=== PATIENT | female | born 1940 | race Caucasian/White ===

== ENCOUNTER 2017-06-10 10:04 | Emergency (ER) | payer MEDICARE, OTHER ==
--- NOTE | 2017-06-10 11:01 | ER Document Report ---
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 Most of these have occurred while she was on an immunosuppressive injection agent for treating her rheumatoid arthritis. That medicine was stopped a year ago and she now is only on methotrexate for her rheumatoid. She has had trouble controlling her urine since yesterday and the urine has a bad odor. She seemed confused according to the family and state is worse today. At this time she is completely alert and oriented and is a very good historian. She does have past history CVA, there are no new motor deficits detected. All of the cultures and treatment were carried out through [facility] and they thought they would come here today. I have advised them they should request a form for release of records and obtain all of the cultures and sensitivities for the past 2 years to help direct initial antibiotic therapy if needed. I have greeted and performed a rapid initial assessment of this patient. A comprehensive ED assessment and evaluation of the patient, analysis of test results and completion of the medical decision making process will be conducted by additional ED providers. TRAVEL OUTSIDE OF THE [place] IN LAST 30 DAYS: No - Related Data Allergies/Adverse Reactions: TIESHA Inhibitors Allergy (Verified 06/10/17 10:06) Home Medications: Current Home Medications Aspirin 81 mg PO DAILY 06/10/17 [History] Calcium Carbonate [Calcium] 600 mg PO DAILY 06/10/17 [History] Folic Acid 0.8 mg PO DAILY 06/10/17 [History] Gabapentin 300 mg PO TID 06/10/17 [History] Iron 65 mg PO DAILY 06/10/17 [History] Letrozole 2.5 mg PO DAILY 06/10/17 [History] Losartan Potassium 100 mg PO DAILY 06/10/17 [History] Metformin HCl 500 mg PO DAILY 06/10/17 [History] Metoprolol Succinate 50 mg PO DAILY 06/10/17 [History] Nortriptyline HCl 10 mg PO DAILY 06/10/17 [History] Primidone [Mysoline 50 Mg Tablet] 50 mg PO DAILY 06/10/17 [History] Sertraline HCl 100 mg PO DAILY 06/10/17 [History] Simvastatin 10 mg PO DAILY 06/10/17 [History] Tramadol HCl 50 mg PO TID 06/10/17 [History] Past Medical History - Social History Chew tobacco use (# tins/day): No Frequency of alcohol use: None Drug Abuse: None - Past Medical History Cardiac Medical History: Reports: Hx Hypertension Denies: Hx Heart Attack Pulmonary Medical History: Denies: Hx Asthma Neurological Medical History: Reports: Hx Cerebrovascular Accident - SHORT TERM MEMORY LOSS. Denies: Hx Seizures Endocrine Medical History: Reports: Hx Diabetes Mellitus Type 2 Renal/ Medical History: Denies: Hx Peritoneal Dialysis GI Medical History: Reports: Hx Hiatal Hernia. Denies: Hx Hepatitis, Hx Ulcer Musculoskeltal Medical History: Reports Hx Arthritis Infectious Medical History: Denies: Hx Hepatitis Past Surgical History: Reports: Hx Cardiac Catheterization, Hx Cholecystectomy. Denies: Hx Mastectomy, Hx Open Heart Surgery, Hx Pacemaker - Immunizations Hx Diphtheria, Pertussis, Tetanus Vaccination: Yes Physical Exam - Vital signs Vitals: Temp Pulse Resp BP Pulse Ox 98.7 F 56 L 14 147/54 H 99 06/10/17 10:16 06/10/17 10:16 06/10/17 10:16 06/10/17 10:16 06/10/17 10:16 Course - Vital Signs Vital signs: Temp Pulse Resp BP Pulse Ox 98.7 F 56 L 14 147/54 H 99 06/10/17 10:16 06/10/17 10:16 06/10/17 10:16 06/10/17 10:16 06/10/17 10:16 - Laboratory Laboratory results interpreted by me: 06/10/17 10:39 POC Glucose 164 H
[2017-06-10 11:44] LABS: ABSOLUTE EOSINOPHILS # (AUTO) 0.2 10^3/uL (0.0-0.6); ABSOLUTE LYMPHOCYTES (AUTO) 1.3 10^3/uL (0.5-4.7); ABSOLUTE MONOCYTES (AUTO) 0.4 10^3/uL (0.1-1.4); ABSOLUTE NEUT (AUTO) 2.6 10^3/uL (1.7-8.2); BASOPHILS % (AUTO) 0.6 % (0-2); EOSINOPHILS % (AUTO) 4.6 % (0-6); HEMATOCRIT 35.3 % (36.0-47.0); HEMOGLOBIN 12.2 g/dL (12.0-15.5); LYMPHOCYTES % (AUTO) 28.9 % (13-45); MEAN CORPUSCULAR HEMOGLOBIN 32.2 pg (27.0-33.4); MEAN CORPUSCULAR HGB CONC 34.5 g/dL (32.0-36.0); MEAN CORPUSCULAR VOLUME 93 fl (80-97); MONOCYTES % (AUTO) 9.1 % (3-13); PLATELET COUNT 129 10^3/uL (150-450); RED BLOOD COUNT 3.79 10^6/uL (3.72-5.28); RED CELL DISTRIBUTION WIDTH 14.8 % (11.5-14.0); SEGMENTED NEUTROPHILS % (AUTO) 56.8 % (42-78); TOTAL CELLS COUNTED % (AUTO) 100 %; WHITE BLOOD COUNT 4.5 10^3/uL (4.0-10.5)
[2017-06-10 11:52] LABS: APPEARANCE,URINE CLEAR; BILIRUBIN,URINE NEGATIVE (NEGATIVE); COLOR,URINE YELLOW; GLUCOSE, URINE NEGATIVE (NEGATIVE); KETONES,URINE NEGATIVE (NEGATIVE); LEUKOCYTE ESTERASE,URINE TRACE (NEGATIVE); NITRITE,URINE NEGATIVE (NEGATIVE); PROTEIN,URINE NEGATIVE (NEGATIVE); URINE SPECIFIC GRAVITY 1.012; UROBILINOGEN,URINE NEGATIVE mg/dL (<2.0)
[2017-06-10 12:02] LABS: ALANINE AMINOTRANSFERASE 18 U/L (9-52); ALBUMIN 3.5 g/dL (3.5-5.0); ALKALINE PHOSPHATASE 121 U/L (38-126); ANION GAP 10 (5-19); ASPARTATE AMINO TRANSFERASE 25 U/L (14-36); BILIRUBIN,DIRECT 0.2 mg/dL (0.0-0.4); BILIRUBIN,TOTAL 0.7 mg/dL (0.2-1.3); BLOOD UREA NITROGEN 18 mg/dL (7-20); CALCIUM 10.2 mg/dL (8.4-10.2); CARBON DIOXIDE 27 mmol/L (22-30); CHLORIDE 103 mmol/L (98-107); GLUCOSE 127 mg/dL (75-110); POTASSIUM 3.9 mmol/L (3.6-5.0); SODIUM 140.2 mmol/L (137-145); TOTAL PROTEIN 6.4 g/dL (6.3-8.2)
--- NOTE | 2017-06-10 12:26 | ER Document Report ---
ED General - General Chief Complaint: Weakness Stated Complaint: WEAKNESS,DIZZINESS Time Seen by Provider: 06/10/17 10:41 Notes: Patient states that she has struggled for a long time with recurrent urinary tract infections. When she gets urinary tract infection she has incontinence. Had several episodes of incontinence today. [place] dizzy. [place] like she was going to pass out. Of note, patient had a cardiac catheterization within the last 12 months which was reportedly normal. Patient has had CVA in the past. No significant residual deficits other than occasional difficulty with word finding and some short-term memory loss. Patient denies any significant weakness of the upper or lower extremities. No slurred speech. Does have some chronic issues with swallowing. Denies any fevers, chills, sweats. Patient thinks that this is a urinary tract infection. TRAVEL OUTSIDE OF THE [place] IN LAST 30 DAYS: No - HPI Onset: Just prior to arrival Onset/Duration: Gradual Quality of pain: No pain Severity: Mild Associated symptoms: Other - Venous Exacerbated by: Denies - Related Data Allergies/Adverse Reactions: TIESHA Inhibitors Allergy (Verified 06/10/17 10:06) Home Medications: Current Home Medications Aspirin 81 mg PO DAILY 06/10/17 [History] Calcium Carbonate [Calcium] 600 mg PO DAILY 06/10/17 [History] Folic Acid 0.8 mg PO DAILY 06/10/17 [History] Gabapentin 300 mg PO TID 06/10/17 [History] Iron 65 mg PO DAILY 06/10/17 [History] Letrozole 2.5 mg PO DAILY 06/10/17 [History] Losartan Potassium 100 mg PO DAILY 06/10/17 [History] Metformin HCl 500 mg PO DAILY 06/10/17 [History] Metoprolol Succinate 50 mg PO DAILY 06/10/17 [History] Nortriptyline HCl 10 mg PO DAILY 06/10/17 [History] Primidone [Mysoline 50 Mg Tablet] 50 mg PO DAILY 06/10/17 [History] Sertraline HCl 100 mg PO DAILY 06/10/17 [History] Simvastatin 10 mg PO DAILY 06/10/17 [History] Tramadol HCl 50 mg PO TID 06/10/17 [History] Past Medical History - General Information source: Patient - Social History Smoking Status: Never Smoker Chew tobacco use (# tins/day): No Frequency of alcohol use: None Drug Abuse: None Lives with: Family Family History: Reviewed & Not Pertinent Patient has suicidal ideation: No Patient has homicidal ideation: No - Past Medical History Cardiac Medical History: Reports: Hx Hypertension Denies: Hx Heart Attack Pulmonary Medical History: Reports: Hx Asthma Neurological Medical History: Reports: Hx Cerebrovascular Accident - SHORT TERM MEMORY LOSS. Denies: Hx Seizures Endocrine Medical History: Reports: Hx Diabetes Mellitus Type 2 Renal/ Medical History: Denies: Hx Peritoneal Dialysis GI Medical History: Reports: Hx Hiatal Hernia. Denies: Hx Hepatitis, Hx Ulcer Musculoskeltal Medical History: Reports Hx Arthritis Infectious Medical History: Denies: Hx Hepatitis Past Surgical History: Reports: Hx Cardiac Catheterization, Hx Cholecystectomy, Hx Orthopedic Surgery - b/l knee, Hx Tonsillectomy. Denies: Hx Mastectomy, Hx Open Heart Surgery, Hx Pacemaker - Immunizations Hx Diphtheria, Pertussis, Tetanus Vaccination: Yes Review of Systems - Review of Systems Constitutional: Weakness EENT: Vertigo Cardiovascular: No symptoms reported Respiratory: No symptoms reported Gastrointestinal: No symptoms reported Genitourinary: Incontinence, Urgency Female Genitourinary: No symptoms reported Musculoskeletal: No symptoms reported Skin: No symptoms reported Hematologic/Lymphatic: No symptoms reported Neurological/Psychological: Other - Dizziness, vertigo Physical Exam - Vital signs Vitals: Temp Pulse Resp BP Pulse Ox 98.7 F 56 L 14 147/54 H 99 06/10/17 10:16 06/10/17 10:16 06/10/17 10:16 06/10/17 10:16 06/10/17 10:16 Interpretation: Normal - General General appearance: Appears well, Alert - HEENT Head: Normocephalic, Atraumatic Eyes: Normal Pupils: PERRL - Respiratory Respiratory status: No respiratory distress Chest status: Nontender Breath sounds: Normal Chest palpation: Normal - Cardiovascular Rhythm: Regular Heart sounds: Normal auscultation Murmur: No - Abdominal Inspection: Normal Distension: No distension Bowel sounds: Normal Tenderness: Nontender Organomegaly: No organomegaly - Back Back: Normal, Nontender - Extremities General upper extremity: Normal inspection, Nontender, Normal color, Normal ROM , Normal temperature General lower extremity: Normal inspection, Nontender, Normal color, Normal ROM , Normal temperature, Normal weight bearing. No: Gita's sign - Neurological Neuro grossly intact: Yes Cognition: Normal Orientation: AAOx4 Dipesh Coma Scale Eye Opening: Spontaneous Dipesh Coma Scale Verbal: Oriented [place] Coma Scale Motor: Obeys Commands [place] Coma Scale Total: 15 Speech: Normal Motor strength normal: LUE, RUE, LLE, RLE Sensory: Normal - Psychological Associated symptoms: Normal affect, Normal mood - Skin Skin Temperature: Warm Skin Moisture: Dry Skin Color: Normal Course - Re-evaluation Re-evalutation: 06/10/17 13:42 Well-appearing female in no acute distress at this time. We will get basic labs , head CT, EKG, cardiac lab and reassess. 06/10/17 15:01 CT unremarkable. Labs fairly unremarkable. Will proceed with MRI just to make sure there is no evidence of stroke. - Vital Signs Vital signs: Temp Pulse Resp BP Pulse Ox 98.7 F 56 L 17 136/57 H 97 06/10/17 10:16 06/10/17 10:16 06/10/17 11:35 06/10/17 11:35 06/10/17 11:35 - Laboratory Result Diagrams: 06/10/17 11:24 06/10/17 11:24 Laboratory results interpreted by me: 06/10/17 06/10/17 06/10/17 10:39 11:24 11:24 Hct 35.3 L RDW 14.8 H Plt Count 129 L Glucose 127 H POC Glucose 164 H Urine Blood Ur Leukocyte Esterase 06/10/17 11:24 Hct RDW Plt Count Glucose POC Glucose Urine Blood SMALL H Ur Leukocyte Esterase TRACE H - EKG Interpretation by Mi EKG shows normal: Sinus rhythm, [place], Intervals, QRS Complexes, ST-T Waves Discharge - Discharge Clinical Impression: Vertigo UTI (urinary tract infection) Qualifiers: Urinary tract infection type: site unspecified Hematuria presence: without hematuria Qualified Code(s): N39.0 - Urinary tract infection, site not specified Disposition: HOME, SELF-CARE Instructions: Trimethoprim-Sulfa ([facility]), Urinary Tract Infection ([facility]) Additional Instructions: Vertigo You have experienced an episode of vertigo -- a whirling dizziness which may be accompanied by nausea and vomiting or staggering. Vertigo is often caused by an irritation of the inner ear, in which case it is called labyrinthitis. It can also be a symptom of a degenerating inner ear, nerve damage, or brain injury. Your physician has evaluated you to determine whether any further testing is necessary. Vertigo is often treated with dramamine or meclizine. These medications are helpful, but stronger medication may be needed if you are vomiting. Rest in bed. You should not drive or operate machinery until completely better. It may take one to three weeks for recovery. If there are new symptoms, such as decreased hearing or vision, severe headache, weakness or faintness, or confusion, call the physician. Prescriptions: Meclizine HCl [Antivert 12.5 mg Tablet] 12.5 mg PO TID PRN 10 Days #30 tablet PRN Reason: Sulfamethoxazole/Trimethoprim [Bactrim Ds Tablet] 1 each PO BID 5 Days #10 tablet Referrals: SOFIYA CURRY MD [Primary Care Provider] - Follow up as needed
[2017-06-10] MEDS ORDERED: MECLIZINE HCL 12.5 MG TABLET PO ONE (12:29)
--- NOTE | 2017-06-10 13:34 | RADIOLOGY REPORT (SQ) ---
EXAM DESCRIPTION: CT HEAD WITHOUT COMPLETED DATE/TIME: 06/10/2017 1:13 pm REASON FOR STUDY: fall, dizziness, hx of cva COMPARISON: None. TECHNIQUE: Axial images acquired through the brain without intravenous contrast. Images reviewed wi th bone, brain and subdural windows. Images stored on PACS. All CT scanners at this facility use dose modulation, iterative reconstruction, and/or weight based d osing when appropriate to reduce radiation dose to as low as reasonably achievable (ALARA). [facility]: Dose Right [facility]: CareDose [facility]: Dose Right [facility]: Teradose 4D [facility]: Smart [employer] RADIATION DOSE: CT Rad equipment meets quality standard of care and radiation dose reduction techniq ues were employed. CTDIvol: 64.6 mGy. DLP: 1163 mGy-cm. mGy. LIMITATIONS: None. FINDINGS: VENTRICLES: Normal size and contour. CEREBRUM: No masses. No hemorrhage. No midline shift. No evidence for acute infarction. Extensive areas of low density in the white matter most likely chronic small vessel ischemic changes. CEREBELLUM: No masses. No hemorrhage. No alteration of density. No evidence for acute infarction. EXTRAAXIAL SPACES: No fluid collections. No masses. ORBITS AND GLOBE: No intra- or extraconal masses. Normal contour of globe without masses. CALVARIUM: No fracture. PARANASAL SINUSES: No fluid or mucosal thickening. SOFT TISSUES: No mass or hematoma. OTHER: No other significant finding. IMPRESSION: Chronic appearing white matter small vessel disease. No CT evidence of acute ischemic change, acute intracranial hemorrhage, mass effect or midline shift. No skull fracture. EVIDENCE OF ACUTE STROKE: NO. COMMENT: Quality ID # [id number]: Final reports with documentation of one or more dose reduction techniques (e.g., Automated exposure control, adjustment of the mA and/or kV according to patient size, use of iterative reconstruction technique) TECHNICAL DOCUMENTATION: JOB ID: [id number] [employer]- All Rights Reserved
--- NOTE | 2017-06-10 17:10 | RADIOLOGY REPORT (SQ) ---
EXAM DESCRIPTION: MRI HEAD WITHOUT COMPLETED DATE/TIME: 06/10/2017 4:56 pm REASON FOR STUDY: dizziness, headache COMPARISON: None. TECHNIQUE: Multiplanar imaging includes non-contrasted T1, T2, FLAIR, and diffusion with ADC map seq uences. Images stored on PACS. LIMITATIONS: None. FINDINGS: ANATOMY: No anomalies. Normal vascular flow voids. Pituitary fossa normal. CSF SPACES: Atrophy induced prominence of ventricles and CSF spaces. CEREBRUM: High signal intensity lesions scattered throughout the white matter on FLAIR imaging with d istribution suggesting micro-vascular ischemic changes. No evidence of hemorrhage, mass, or extraaxi al fluid collection. POSTERIOR FOSSA: No signal alteration. No hemorrhage. No edema, masses or mass effect. Internal cole tory canals, cerebello-pontine angles, mastoids normal. DIFFUSION IMAGING: Negative for acute or sub-acute infarction. ORBITS: No masses. Globes normal. PARANASAL SINUSES: No fluid levels. Mucosa normal. OTHER: No other significant finding. IMPRESSION: ATROPHY AND CHRONIC MICRO-VASCULAR ISCHEMIC CHANGES. OTHERWISE NORMAL MRI OF THE BRAIN W ITHOUT INTRAVENOUS GADOLINIUM CONTRAST. EVIDENCE OF ACUTE STROKE: NO. TECHNICAL DOCUMENTATION: JOB ID: [id number] [employer]- All Rights Reserved
[2017-06-10 17:43] VITALS: BP 146/51
--- NOTE | 2017-06-10 18:33 | EKG REPORT ---
SEVERITY:- ABNORMAL ECG - SINUS RHYTHM CONSIDER OLD TRUE POSTERIOR [place] : Confirmed by: Bayron Niño MD 10-Jun-2017 18:33:31
== END 2017-06-10 17:47 | disposition home or self-care (01) ==
LOC: ER 10:04
DX: N39.0 Urinary tract infection, site not specified (principal); R42 Dizziness and giddiness; R53.1 Weakness; Z79.899 Other long term (current) drug therapy; Z86.73 Personal history of transient ischemic attack (TIA), and cerebral infarction without residual deficits
CPT/HCPCS: 93005; 99285; 51701; 36415; 87086; 82962; 85025; 87088; 80053; 81001; 84484; 87186; 70551; 70450; 93010; A9270; J3490

== ENCOUNTER 2018-11-23 19:29 | Inpatient (IN) | payer MEDICARE, OTHER ==
[2018-11-23] MEDS ORDERED: RINGERS SOLUTION,LACTATED 1,000 ML IV ONE (19:53)
--- NOTE | 2018-11-23 19:55 | ER Document Report ---
ED General - General Stated Complaint: POSSIBLE FEVER Time Seen by Provider: 11/23/18 19:37 Notes: Patient is a 78-year-old female with history of recurrent UTIs that presents to the emergency department for chief complaint of fever, rigors, and generalized weakness. History provided mainly by the patient's family who is at bedside, they state that she has been getting recurrent UTIs over this entire year, was recently on amoxicillin and doxycycline, she has had increased weakness, and some increased confusion which is typical when she gets a UTI, but today she was more weak than usual, and did have a fever of 103.9, with rigors at home, which is concerning, that she may be getting septic which she has had in the past. She at this time complains of some mild abdominal pain, and some flank pain as well, is not sure she has had blood in the urine, denies having any diarrhea, admits to mild nausea but no vomiting. No other complaints at this time. Family reports that her UTIs are becoming more resistant, but they are not sure what her most recent culture showed and what it was sensitive to, they state that it was resistant to doxycycline so they switched her to amoxicillin. Past Medical History: Rheumatoid arthritis, diabetes mellitus, hypertension, recurrent UTIs Past Surgical History: Mastectomy, cholecystectomy, total knee arthroplasties Social History: Lives at home with family, denies tobacco, alcohol or drug use. Family History: Reviewed and noncontributory for presenting illness Allergies: Reviewed, see documented allergy list. REVIEW OF SYSTEMS: Other than noted above, the 12 point review of systems was reviewed with the patient and were negative, all pertinent findings are included in the HPI. PHYSICAL EXAMINATION: Vital signs reviewed, nursing noted reviewed. GENERAL: Elderly obese female, but in no acute distress HEAD: Atraumatic, normocephalic. EYES: Eyes appear normal, extraocular movements intact, sclera anicteric, conjunctiva are normal. ENT: nares patent, oropharynx clear without exudates. Moist mucous membranes. NECK: Normal range of motion, supple without lymphadenopathy LUNGS: Breath sounds clear to auscultation bilaterally and equal. No wheezes rales or rhonchi. HEART: Regular rate and rhythm without murmurs ABDOMEN: Soft, obese, mild suprapubic tenderness to palpation, no significant CVA tenderness bilaterally, normoactive bowel sounds. No rebound, guarding, or rigidity. No masses appreciated. EXTREMITIES: Nontender, good range of motion, trace bilateral lower extremity generalized edema NEUROLOGICAL: No focal neurological deficits. Moves all extremities spontaneously Motor and sensory grossly intact on exam. PSYCH: Normal mood, normal affect. SKIN: Warm, Dry, normal turgor, no rashes or lesions noted on exposed skin TRAVEL OUTSIDE OF THE [place] IN LAST 30 DAYS: No - Related Data Allergies/Adverse Reactions: TIESHA Inhibitors Allergy (Verified 06/10/17 10:06) Past Medical History - Social History Smoking Status: Never Smoker Family History: Reviewed & Not Pertinent - Past Medical History Cardiac Medical History: Reports: Hx Hypertension Denies: Hx Heart Attack Pulmonary Medical History: Reports: Hx Asthma Neurological Medical History: Reports: Hx Cerebrovascular Accident - SHORT TERM MEMORY LOSS. Denies: Hx Seizures Endocrine Medical History: Reports: Hx Diabetes Mellitus Type 2 Renal/ Medical History: Denies: Hx Peritoneal Dialysis GI Medical History: Reports: Hx Hiatal Hernia. Denies: Hx Hepatitis, Hx Ulcer Musculoskeletal Medical History: Reports Hx Arthritis Infectious Medical History: Denies: Hx Hepatitis Past Surgical History: Reports: Hx Cardiac Catheterization, Hx Cholecystectomy, Hx Orthopedic Surgery - b/l knee, Hx Tonsillectomy. Denies: Hx Mastectomy, Hx Open Heart Surgery, Hx Pacemaker - Immunizations Hx Diphtheria, Pertussis, Tetanus Vaccination: Yes Physical Exam - Vital signs Vitals: Resp Pulse Ox 32 H 91 L 11/23/18 19:40 11/23/18 19:40 Course - Re-evaluation Re-evalutation: Patient seen and examined vital signs reviewed. Laboratory data and imaging were ordered as appropriate for the patient's presenting symptoms and complaint, with consideration of any critical or life threatening conditions that may be associated with their obtained history and exam as noted above. Patient was treated with IV fluids, she was given almost a liter by EMS additional liter in the ED, fluids were given judiciously as the patient does have a history of CHF, and obstructive sleep apnea, so she was given a total of 2 L, in addition to be starting on Zosyn, family did report history of resistance, I did call over to [facility], but the only records they have were of a culture from 2017, and I did call to their urologist office, but they were closed and could not get results. I did not feel the patient need to be put on the meropenem or imipenem, as it did not seem that the patient had ESBL organism growing if it was sensitive to as reported by family to amoxicillin. Results were reviewed when available and demonstrated urine was grossly positive for urinary tract infection, and sent for culture, blood cultures pending as well, normal white blood cell count, however she did have shift toward neutrophils, normal renal function, lactic acid was elevated over 3. The patient was re-evaluated and was improved, fever was coming down, blood pressure remained stable Evaluation was most consistent with sepsis, UTI Results were discussed with the patient at this point after careful consideration I feel that that patient should be admitted to the hospital. This was discussed with the patient that it is in the best interest for their care to be admitted for further evaluation and management. Patient agreed with this plan of care. A call was placed to the admitting physician, Dr. Hollingsworth who graciously accepted the patient onto their service. *Note is created using voice recognition software and may contain spelling, syntax or grammatical errors. Laboratory 11/23/18 11/23/18 11/23/18 19:35 19:35 19:35 WBC 4.2 RBC 3.13 L Hgb 9.5 L Hct 27.8 L MCV 89 MCH 30.5 MCHC 34.3 RDW 17.4 H Plt Count 92 L Seg Neutrophils % 88.4 H Lymphocytes % 5.7 L Monocytes % 4.5 Eosinophils % 1.1 Basophils % 0.3 Absolute Neutrophils 3.7 Absolute Lymphocytes 0.2 L Absolute Monocytes 0.2 Absolute Eosinophils 0.0 Absolute Basophils 0.0 Retic Count (auto) Absolute Retic PT 15.5 H INR 1.17 VBG pH VBG pCO2 VBG HCO3 VBG Base Excess Sodium 134.8 L Potassium 4.6 Chloride 107 Carbon Dioxide 19 L Anion Gap 9 BUN 14 Creatinine 0.84 Est GFR ( Amer) > 60 Est GFR (Non-Af Amer) > 60 Glucose 182 H Lactic Acid Calcium 9.0 Iron TIBC % Saturation Ferritin Total Bilirubin 0.7 Direct Bilirubin 0.2 Neonat Total Bilirubin Not Reportable Neonat Direct Bilirubin Not Reportable Neonat Indirect Bili Not Reportable AST 24 ALT 15 Alkaline Phosphatase 110 Troponin I Total Protein 6.0 L Albumin 3.1 L Vitamin B12 Folate Urine Color Urine Appearance Urine pH Ur Specific [place] Urine Protein Urine Glucose (UA) Urine Ketones Urine Blood Urine Nitrite Urine Bilirubin Urine Urobilinogen Ur Leukocyte Esterase Urine WBC (Auto) Urine RBC (Auto) Urine Bacteria (Auto) Urine WBC Clumps Urine Mucus (Auto) Urine Ascorbic Acid 11/23/18 11/23/18 11/23/18 19:35 19:35 19:35 WBC RBC Hgb Hct MCV MCH MCHC RDW Plt Count Seg Neutrophils % Lymphocytes % Monocytes % Eosinophils % Basophils % Absolute Neutrophils Absolute Lymphocytes Absolute Monocytes Absolute Eosinophils Absolute Basophils Retic Count (auto) Absolute Retic PT INR VBG pH 7.38 VBG pCO2 33.9 L VBG HCO3 19.5 L VBG Base Excess -4.9 Sodium Potassium Chloride Carbon Dioxide Anion Gap BUN Creatinine Est GFR ( Amer) Est GFR (Non-Af Amer) Glucose Lactic Acid 3.4 H Calcium Iron TIBC % Saturation Ferritin Total Bilirubin Direct Bilirubin Neonat Total Bilirubin Neonat Direct Bilirubin Neonat Indirect Bili AST ALT Alkaline Phosphatase Troponin I 0.012 Total Protein Albumin Vitamin B12 Folate Urine Color Urine Appearance Urine pH Ur Specific [place] Urine Protein Urine Glucose (UA) Urine Ketones Urine Blood Urine Nitrite Urine Bilirubin Urine Urobilinogen Ur Leukocyte Esterase Urine WBC (Auto) Urine RBC (Auto) Urine Bacteria (Auto) Urine WBC Clumps Urine Mucus (Auto) Urine Ascorbic Acid 11/23/18 11/23/18 11/23/18 19:35 19:35 20:45 WBC RBC Hgb Hct MCV MCH MCHC RDW Plt Count Seg Neutrophils % Lymphocytes % Monocytes % Eosinophils % Basophils % Absolute Neutrophils Absolute Lymphocytes Absolute Monocytes Absolute Eosinophils Absolute Basophils Retic Count (auto) 2.12 Absolute Retic 0.066 PT INR VBG pH VBG pCO2 VBG HCO3 VBG Base Excess Sodium Potassium Chloride Carbon Dioxide Anion Gap BUN Creatinine Est GFR ( Amer) Est GFR (Non-Af Amer) Glucose Lactic Acid Calcium Iron 46.8 TIBC 319 % Saturation 15 Ferritin 22.90 Total Bilirubin Direct Bilirubin Neonat Total Bilirubin Neonat Direct Bilirubin Neonat Indirect Bili AST ALT Alkaline Phosphatase Troponin I Total Protein Albumin Vitamin B12 658.0 Folate > 20.00 Urine Color YELLOW Urine Appearance CLOUDY Urine pH 5.0 Ur Specific [place] 1.012 Urine Protein 30 H Urine Glucose (UA) 50 H Urine Ketones NEGATIVE Urine Blood MODERATE H Urine Nitrite POSITIVE H Urine Bilirubin NEGATIVE Urine Urobilinogen NEGATIVE Ur Leukocyte Esterase LARGE H Urine WBC (Auto) >182 Urine RBC (Auto) 10 Urine Bacteria (Auto) TRACE Urine WBC Clumps MANY Urine Mucus (Auto) RARE Urine Ascorbic Acid NEGATIVE Chest X-Ray 11/23/18 19:38 IMPRESSION: No acute abnormality is identified. Abdomen/Pelvis CT 11/23/18 21:59 IMPRESSION: Cirrhotic appearance of the liver with gastroesophageal varices and splenic enlargement Incompletely distended urinary bladder with surrounding inflammation which may reflect cystitis - Vital Signs Vital signs: Temp Pulse Resp BP Pulse Ox 99.6 F 65 19 121/40 L 96 11/24/18 02:17 11/24/18 02:18 11/24/18 01:24 11/24/18 02:17 11/24/18 02:17 - Laboratory Result Diagrams: 11/23/18 19:35 11/23/18 19:35 Laboratory results interpreted by me: 11/23/18 11/23/18 11/23/18 19:35 19:35 19:35 RBC 3.13 L Hgb 9.5 L Hct 27.8 L RDW 17.4 H Plt Count 92 L Seg Neutrophils % 88.4 H Lymphocytes % 5.7 L Absolute Lymphocytes 0.2 L PT 15.5 H VBG pCO2 VBG HCO3 Sodium 134.8 L Carbon Dioxide 19 L Glucose 182 H Lactic Acid Total Protein 6.0 L Albumin 3.1 L Urine Protein Urine Glucose (UA) Urine Blood Urine Nitrite Ur Leukocyte Esterase 11/23/18 11/23/18 11/23/18 19:35 19:35 20:45 RBC Hgb Hct RDW Plt Count Seg Neutrophils % Lymphocytes % Absolute Lymphocytes PT VBG pCO2 33.9 L VBG HCO3 19.5 L Sodium Carbon Dioxide Glucose Lactic Acid 3.4 H Total Protein Albumin Urine Protein 30 H Urine Glucose (UA) 50 H Urine Blood MODERATE H Urine Nitrite POSITIVE H Ur Leukocyte Esterase LARGE H - EKG Interpretation by Me Additional EKG results interpreted by me: EKG demonstrates sinus rhythm with a ventricular rate of 87 bpm, left axis deviation, QTC 457 ms, T wave inversions noted in lead I and aVL, this is compared to prior EKG from 06/10/2017, where the T wave inversions do appear new. Discharge - Discharge Clinical Impression: UTI (urinary tract infection) Qualifiers: Urinary tract infection type: site unspecified Hematuria presence: with hematuria Qualified Code(s): N39.0 - Urinary tract infection, site not specified Sepsis Qualifiers: Sepsis type: sepsis due to unspecified organism Qualified Code(s): A41.9 - Sepsis, unspecified organism Anemia Qualifiers: Anemia type: unspecified type Qualified Code(s): D64.9 - Anemia, unspecified Condition: Stable Disposition: ADMITTED INPATIENT Admitting Provider: Darrick (Hospitalist) Unit Admitted: Telemetry
[2018-11-23 19:58] LABS: VENOUS BLOOD BASE EXCESS -4.9 mmol/L; VENOUS BLOOD HCO3 19.5 mmol/L (20-32); VENOUS BLOOD PCO2 33.9 mmHg (35-63); VENOUS BLOOD PH 7.38 (7.30-7.42)
[2018-11-23 20:01] LABS: ABSOLUTE LYMPHOCYTES (AUTO) 0.2 10^3/uL (0.5-4.7); ABSOLUTE MONOCYTES (AUTO) 0.2 10^3/uL (0.1-1.4); ABSOLUTE NEUT (AUTO) 3.7 10^3/uL (1.7-8.2); BASOPHILS % (AUTO) 0.3 % (0-2); EOSINOPHILS % (AUTO) 1.1 % (0-6); HEMATOCRIT 27.8 % (36.0-47.0); HEMOGLOBIN 9.5 g/dL (12.0-15.5); LYMPHOCYTES % (AUTO) 5.7 % (13-45); MEAN CORPUSCULAR HEMOGLOBIN 30.5 pg (27.0-33.4); MEAN CORPUSCULAR HGB CONC 34.3 g/dL (32.0-36.0); MEAN CORPUSCULAR VOLUME 89 fl (80-97); MONOCYTES % (AUTO) 4.5 % (3-13); RED BLOOD COUNT 3.13 10^6/uL (3.72-5.28); RED CELL DISTRIBUTION WIDTH 17.4 % (11.5-14.0); SEGMENTED NEUTROPHILS % (AUTO) 88.4 % (42-78); TOTAL CELLS COUNTED % (AUTO) 100 %; WHITE BLOOD COUNT 4.2 10^3/uL (4.0-10.5)
[2018-11-23 20:09] LABS: INTERNATIONAL RATION (INR) 1.17; PROTHROMBIN TIME 15.5 SEC (11.4-15.4)
[2018-11-23 20:17] LABS: ALANINE AMINOTRANSFERASE 15 U/L (9-52); ALBUMIN 3.1 g/dL (3.5-5.0); ALKALINE PHOSPHATASE 110 U/L (38-126); ANION GAP 9 (5-19); ASPARTATE AMINO TRANSFERASE 24 U/L (14-36); BILIRUBIN,DIRECT 0.2 mg/dL (0.0-0.4); BILIRUBIN,TOTAL 0.7 mg/dL (0.2-1.3); BLOOD UREA NITROGEN 14 mg/dL (7-20); CARBON DIOXIDE 19 mmol/L (22-30); CHLORIDE 107 mmol/L (98-107); GLUCOSE 182 mg/dL (75-110); POTASSIUM 4.6 mmol/L (3.6-5.0); SODIUM 134.8 mmol/L (137-145)
[2018-11-23 20:28] LABS: PLATELET COUNT 92 10^3/uL (150-450)
--- NOTE | 2018-11-23 20:29 | RADIOLOGY REPORT (SQ) ---
EXAM DESCRIPTION: XR CHEST 1 VIEW COMPLETED DATE/TME: 11/23/2018 19:38 CLINICAL HISTORY: 78 years Female fever COMPARISON: 03/05/2012 FINDINGS: The cardiomediastinal silhouette appears unremarkable. No consolidating infiltrates or pleural effusions. No pneumothorax. Ascending aorta appears tortuous but stable. IMPRESSION: No acute abnormality is identified.
[2018-11-23 21:24] LABS: APPEARANCE,URINE CLOUDY; BILIRUBIN,URINE NEGATIVE (NEGATIVE); COLOR,URINE YELLOW; GLUCOSE, URINE 50 mg/dL (NEGATIVE); KETONES,URINE NEGATIVE (NEGATIVE); LEUKOCYTE ESTERASE,URINE LARGE (NEGATIVE); NITRITE,URINE POSITIVE (NEGATIVE); PROTEIN,URINE 30 mg/dL (NEGATIVE); URINE SPECIFIC GRAVITY 1.012; UROBILINOGEN,URINE NEGATIVE mg/dL (<2.0)
[2018-11-23] MEDS ORDERED: PIPERACILLIN/TAZOBACTAM 3.375 GM VIAL IV ONE (21:32)
--- NOTE | 2018-11-23 22:41 | RADIOLOGY REPORT (SQ) ---
EXAM DESCRIPTION: CT ABDOMEN PELVIS WITHOUT IV CONTRAST COMPLETED DATE/TME: 11/23/2018 21:59 CLINICAL HISTORY: 78 years Female uti, flank pain COMPARISON: None. TECHNIQUE: Contiguous axial images obtained through the abdomen and pelvis following IV contrast. Reformatted images obtained. This exam was performed according to our department optimization program which includes automated exposure control, adjustment of the mA and/or kv according to patient size and/or use of iterative reconstruction technique. FINDINGS: Nodular liver suggesting cirrhosis. Numerous gastroesophageal varices. Splenic enlargement measuring 14.4 cm. Unremarkable pancreas. No adrenal masses. The kidneys appear unremarkable. No hydronephrosis. The gallbladder is absent. No aneurysmal dilatation of the aorta. Vascular calcification in aorta. No bowel obstruction. The appendix is unremarkable. No significant free fluid noted. 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
[2018-11-23] MEDS ORDERED: IPRATROPIUM/ALBUTEROL 0.5-2.5 MG/3 ML AMPUL NEB PRN (22:51)
[2018-11-23] MEDS ORDERED: MAG HYDROX/AL HYDROX/SIMETH SUSP 30 ML UDCUP PO PRN (22:51)
--- NOTE | 2018-11-23 22:59 | EKG REPORT ---
SEVERITY:- ABNORMAL ECG - SINUS RHYTHM BORDERLINE LEFT AXIS DEVIATION ABNORMAL T, CONSIDER ISCHEMIA, LATERAL LEADS : Confirmed by: Liliana Beltran 23-Nov-2018 22:58:52
[2018-11-23 23:35] LABS: ABSOLUTE RETICS # 0.066 10^6/uL (0.028-0.122); RETICULOCYTE COUNT (AUTO) 2.12 % (0.66-2.85)
[2018-11-24 00:50] LABS: FOLATE > 20.00 ng/mL (>2.76); IRON(TIBC) 46.8 ug/dL (37-170)
[2018-11-24] MEDS: ACETAMINOPHEN 325 MG TABLET PO PRN ×3 (02:10→12:10)
--- NOTE | 2018-11-24 02:29 | PDOC H&P ---
History of Present Illness Admission Date/PCP: 11/23/18 23:14 LUCHO RICO MD Patient complains of: Fever History of Present Illness: NADEGE LAU is a 78 year old female with past medical history of morbid obesity, GERD, obstructive sleep apnea, rheumatoid arthritis on methotrexate and unknown biologic and recurrent urinary tract infection. She presents with fever, myalgias and found to have neutrophil shift, pyuria and a CT suggestive of cystitis with bladder thickening. She started on empiric antibiotics and referred to the hospitalist for admission. Patient verbalizes frustration over recurrent urinary tract infection following 17 different antibiotic courses of the last 12 months. Past Medical History Cardiac Medical History: Reports: Hypertension Denies: Myocardial Infarction Pulmonary Medical History: Reports: Asthma, Sleep Apnea Neurological Medical History: Denies: Seizures Endocrine Medical History: Reports: Diabetes Mellitus Type 2, Obesity GI Medical History: Reports: Hiatal Hernia Denies: Hepatitis Musculoskeltal Medical History: Reports: Arthritis Hematology: Denies: Anemia, Sickle Cell Disease Past Surgical History Past Surgical History: Reports: Cardiac Catheterization, Cholecystectomy, Orthopedic Surgery - b/l knee, Tonsillectomy Denies: Amputation, Mastectomy, Pacemaker Social History Information Source: Patient Lives with: Family Smoking Status: Never Smoker Frequency of Alcohol Use: None Drugs: None - Advance Directive Resuscitation Status: Full Code Family History Family History: Hypertension Parental Family History Reviewed: Yes Children Family History Reviewed: Yes Sibling(s) Family History Reviewed.: Yes Medication/Allergy Home Medications: Aspirin 81 mg PO DAILY 06/10/17 Calcium Carbonate [Calcium] 600 mg PO DAILY 06/10/17 Folic Acid 0.8 mg PO DAILY 06/10/17 Gabapentin 300 mg PO TID 06/10/17 Iron 65 mg PO DAILY 06/10/17 Letrozole 2.5 mg PO DAILY 06/10/17 Losartan Potassium 100 mg PO DAILY 06/10/17 Meclizine HCl [Antivert 12.5 mg Tablet] 12.5 mg PO TID PRN 10 Days #30 tablet 06/10/17 Metformin HCl 500 mg PO DAILY 06/10/17 Metoprolol Succinate 50 mg PO DAILY 06/10/17 Nortriptyline HCl 10 mg PO DAILY 06/10/17 Primidone [Mysoline 50 Mg Tablet] 50 mg PO DAILY 06/10/17 Sertraline HCl 100 mg PO DAILY 06/10/17 Simvastatin 10 mg PO DAILY 06/10/17 Sulfamethoxazole/Trimethoprim [Bactrim Ds Tablet] 1 each PO BID 5 Days #10 tablet 06/10/17 Tramadol HCl 50 mg PO TID 06/10/17 Allergies/Adverse Reactions: TIESHA Inhibitors Allergy (Verified 06/10/17 10:06) Review of Systems Constitutional: ABSENT: chills, fever(s), headache(s), weight gain, weight loss Eyes: ABSENT: visual disturbances Ears: ABSENT: hearing changes Cardiovascular: ABSENT: chest pain, dyspnea on exertion, edema, orthropnea, palpitations Respiratory: ABSENT: cough, hemoptysis Gastrointestinal: ABSENT: abdominal pain, constipation, diarrhea, hematemesis, hematochezia, nausea, vomiting Genitourinary: ABSENT: dysuria, hematuria Musculoskeletal: ABSENT: joint swelling Integumentary: ABSENT: rash, wounds Neurological: ABSENT: abnormal gait, abnormal speech, confusion, dizziness, focal weakness, syncope Psychiatric: ABSENT: anxiety, depression, homidical ideation, suicidal ideation Endocrine: ABSENT: cold intolerance, heat intolerance, polydipsia, polyuria Hematologic/Lymphatic: ABSENT: easy bleeding, easy bruising Physical Exam Vital Signs: Temp Pulse Resp BP Pulse Ox 99.6 F 65 19 121/40 L 96 11/24/18 02:17 11/24/18 02:18 11/24/18 01:24 11/24/18 02:17 11/24/18 02:17 Intake & Output 11/22/18 11/23/18 11/24/18 11:59 11:59 11:59 Intake Total 1000 Balance 1000 Weight 99.5 kg General appearance: PRESENT: cooperative, mild distress, morbidly obese Head exam: PRESENT: atraumatic, normocephalic Eye exam: PRESENT: conjunctiva pink, EOMI, PERRLA. ABSENT: scleral icterus Ear exam: PRESENT: normal external ear exam Mouth exam: PRESENT: dry mucosa, tongue midline Neck exam: ABSENT: carotid bruit, JVD, lymphadenopathy, thyromegaly Respiratory exam: PRESENT: clear to auscultation marcelo. ABSENT: rales, rhonchi, wheezes Cardiovascular exam: PRESENT: RRR. ABSENT: diastolic murmur, rubs, systolic murmur Pulses: PRESENT: normal dorsalis pedis pul Vascular exam: PRESENT: normal capillary refill GI/Abdominal exam: PRESENT: normal bowel sounds, soft. ABSENT: distended, guarding, mass, organolmegaly, rebound, tenderness Rectal exam: PRESENT: deferred Extremities exam: PRESENT: full ROM. ABSENT: calf tenderness, clubbing, pedal edema Neurological exam: PRESENT: alert, awake, oriented to person, oriented to place, oriented to time, oriented to situation, CN II-XII grossly intact. ABSENT: motor sensory deficit Psychiatric exam: PRESENT: appropriate affect, normal mood. ABSENT: homicidal ideation, suicidal ideation Skin exam: PRESENT: dry, intact, warm. ABSENT: cyanosis, rash Results Laboratory Results: 11/23/18 19:35 11/23/18 19:35 11/23/18 11/23/18 11/23/18 19:35 19:35 19:35 WBC 4.2 RBC 3.13 L Hgb 9.5 L Hct 27.8 L MCV 89 MCH 30.5 MCHC 34.3 RDW 17.4 H Plt Count 92 L Seg Neutrophils % 88.4 H Lymphocytes % 5.7 L Monocytes % 4.5 Eosinophils % 1.1 Basophils % 0.3 Absolute Neutrophils 3.7 Absolute Lymphocytes 0.2 L Absolute Monocytes 0.2 Absolute Eosinophils 0.0 Absolute Basophils 0.0 Retic Count (auto) Absolute Retic VBG pH VBG pCO2 VBG HCO3 VBG Base Excess Sodium 134.8 L Potassium 4.6 Chloride 107 Carbon Dioxide 19 L Anion Gap 9 BUN 14 Creatinine 0.84 Est GFR ( Amer) > 60 Est GFR (Non-Af Amer) > 60 Glucose 182 H Lactic Acid 3.4 H Calcium 9.0 Iron TIBC % Saturation Ferritin Total Bilirubin 0.7 AST 24 ALT 15 Alkaline Phosphatase 110 Total Protein 6.0 L Albumin 3.1 L Vitamin B12 Folate Urine Color Urine Appearance Urine pH Ur Specific [place] Urine Protein Urine Glucose (UA) Urine Ketones Urine Blood Urine Nitrite Ur Leukocyte Esterase Urine WBC (Auto) Urine RBC (Auto) 11/23/18 11/23/18 11/23/18 19:35 19:35 19:35 WBC RBC Hgb Hct MCV MCH MCHC RDW Plt Count Seg Neutrophils % Lymphocytes % Monocytes % Eosinophils % Basophils % Absolute Neutrophils Absolute Lymphocytes Absolute Monocytes Absolute Eosinophils Absolute Basophils Retic Count (auto) 2.12 Absolute Retic 0.066 VBG pH 7.38 VBG pCO2 33.9 L VBG HCO3 19.5 L VBG Base Excess -4.9 Sodium Potassium Chloride Carbon Dioxide Anion Gap BUN Creatinine Est GFR ( Amer) Est GFR (Non-Af Amer) Glucose Lactic Acid Calcium Iron 46.8 TIBC 319 % Saturation 15 Ferritin 22.90 Total Bilirubin AST ALT Alkaline Phosphatase Total Protein Albumin Vitamin B12 658.0 Folate > 20.00 Urine Color Urine Appearance Urine pH Ur Specific [place] Urine Protein Urine Glucose (UA) Urine Ketones Urine Blood Urine Nitrite Ur Leukocyte Esterase Urine WBC (Auto) Urine RBC (Auto) 11/23/18 20:45 WBC RBC Hgb Hct MCV MCH MCHC RDW Plt Count Seg Neutrophils % Lymphocytes % Monocytes % Eosinophils % Basophils % Absolute Neutrophils Absolute Lymphocytes Absolute Monocytes Absolute Eosinophils Absolute Basophils Retic Count (auto) Absolute Retic VBG pH VBG pCO2 VBG HCO3 VBG Base Excess Sodium Potassium Chloride Carbon Dioxide Anion Gap BUN Creatinine Est GFR ( Amer) Est GFR (Non-Af Amer) Glucose Lactic Acid Calcium Iron TIBC % Saturation Ferritin Total Bilirubin AST ALT Alkaline Phosphatase Total Protein Albumin Vitamin B12 Folate Urine Color YELLOW Urine Appearance CLOUDY Urine pH 5.0 Ur Specific [place] 1.012 Urine Protein 30 H Urine Glucose (UA) 50 H Urine Ketones NEGATIVE Urine Blood MODERATE H Urine Nitrite POSITIVE H Ur Leukocyte Esterase LARGE H Urine WBC (Auto) >182 Urine RBC (Auto) 10 11/23/18 19:35 Troponin I 0.012 Impressions: Chest X-Ray 11/23/18 19:38 IMPRESSION: No acute abnormality is identified. Abdomen/Pelvis CT 11/23/18 21:59 IMPRESSION: Cirrhotic appearance of the liver with gastroesophageal varices and splenic enlargement Incompletely distended urinary bladder with surrounding inflammation which may reflect cystitis Assessment and Plan - Diagnosis (1) UTI (urinary tract infection) Is this a current diagnosis for this admission?: Yes Plan: Blood and urine culture, follow-up recent microbiology from Dr. Rico and Dr. Self at [facility], empiric Zosyn initiated. Follow-up CBC, blood and urine culture (2) Sepsis Is this a current diagnosis for this admission?: Yes Plan: IV fluid challenge, follow-up lactic acid (3) Immunocompromised state due to drug therapy Is this a current diagnosis for this admission?: Yes Plan: Secondary to rheumatoid arthritis treatment of methotrexate and unknown biologic. Pressors or steroids. - Time Time Spent with patient: 35 or more minutes - Inpatient Certification Medical Necessity: Need Close Monitoring Due to Risk of Patient Decompensation
[2018-11-24] MEDS ORDERED: PIPERACILLIN/TAZOBACTAM 4.5 GM VIAL IV ONE (03:41)
[2018-11-24] MEDS: PIPERACILLIN SODIUM/TAZOBACTAM 4.5 GM in NORMAL SALINE 100 ML IV SCH ×4 (04:10→22:43)
[2018-11-24] MEDS: HEPARIN SOD (PORCINE) 5,000 UNIT/ML 1 ML SYRINGE SUBCUT SCH ×3 (05:11→22:49)
[2018-11-24 06:26] LABS: ANION GAP 12 (5-19); BLOOD UREA NITROGEN 14 mg/dL (7-20); CALCIUM 8.3 mg/dL (8.4-10.2); CARBON DIOXIDE 18 mmol/L (22-30); CHLORIDE 106 mmol/L (98-107); GLUCOSE 96 mg/dL (75-110); POTASSIUM 4.4 mmol/L (3.6-5.0); SODIUM 135.6 mmol/L (137-145)
[2018-11-24 08:54] LABS: ABSOLUTE LYMPHOCYTES (AUTO) 0.3 10^3/uL (0.5-4.7); ABSOLUTE MONOCYTES (AUTO) 0.1 10^3/uL (0.1-1.4); ABSOLUTE NEUT (AUTO) 3.4 10^3/uL (1.7-8.2); BASOPHILS % (AUTO) 0.2 % (0-2); EOSINOPHILS % (AUTO) 1.2 % (0-6); HEMATOCRIT 24.3 % (36.0-47.0); HEMOGLOBIN 8.4 g/dL (12.0-15.5); LYMPHOCYTES % (AUTO) 8.8 % (13-45); MEAN CORPUSCULAR HEMOGLOBIN 30.8 pg (27.0-33.4); MEAN CORPUSCULAR HGB CONC 34.5 g/dL (32.0-36.0); MEAN CORPUSCULAR VOLUME 89 fl (80-97); MONOCYTES % (AUTO) 3.4 % (3-13); RED BLOOD COUNT 2.73 10^6/uL (3.72-5.28); RED CELL DISTRIBUTION WIDTH 17.2 % (11.5-14.0); SEGMENTED NEUTROPHILS % (AUTO) 86.4 % (42-78); TOTAL CELLS COUNTED % (AUTO) 100 %; WHITE BLOOD COUNT 3.9 10^3/uL (4.0-10.5)
[2018-11-24 09:25] LABS: PLATELET COUNT 70 10^3/uL (150-450)
[2018-11-24] MEDS: DOCUSATE SODIUM 100 MG CAPSULE PO SCH ×2 (09:26→17:28)
[2018-11-24] MEDS: NORMAL SALINE 1000 ML 1,000 ML IV PRN ×2 (09:27→12:23)
[2018-11-24] MEDS ORDERED: NORMAL SALINE 1000 ML 1,000 ML IV PRN (14:15)
[2018-11-24 15:34] LABS: ANION GAP 6 (5-19); BLOOD UREA NITROGEN 15 mg/dL (7-20); CALCIUM 7.8 mg/dL (8.4-10.2); CARBON DIOXIDE 20 mmol/L (22-30); CHLORIDE 104 mmol/L (98-107); GLUCOSE 155 mg/dL (75-110); POTASSIUM 4.4 mmol/L (3.6-5.0); SODIUM 130.3 mmol/L (137-145)
[2018-11-24] MEDS: OXYCODONE HCL IR 5 MG TABLET PO PRN (15:37)
[2018-11-24] MEDS: OXYBUTYNIN CHLORIDE 5 MG TABLET PO SCH (17:29)
[2018-11-24] MEDS: CHOLECALCIFEROL (D3) 1,000 UNIT (25 MCG) TABLET PO SCH (17:29)
[2018-11-24] MEDS: SERTRALINE HCL 50 MG TABLET PO SCH (17:30)
[2018-11-24] MEDS: CYANOCOBALAMIN (VITAMIN B-12) 1,000 MCG TABLET PO SCH (17:32)
[2018-11-24] MEDS: GABAPENTIN 300 MG CAPSULE PO SCH (22:43)
[2018-11-24] MEDS: NORTRIPTYLINE HCL 10 MG CAPSULE PO SCH (22:45)
[2018-11-25] MEDS: PIPERACILLIN SODIUM/TAZOBACTAM 4.5 GM in NORMAL SALINE 100 ML IV SCH ×4 (05:29→21:21)
[2018-11-25] MEDS: HEPARIN SOD (PORCINE) 5,000 UNIT/ML 1 ML SYRINGE SUBCUT SCH ×3 (05:39→21:21)
[2018-11-25 06:33] LABS: HEMATOCRIT 24.4 % (36.0-47.0); HEMOGLOBIN 8.4 g/dL (12.0-15.5); MEAN CORPUSCULAR HEMOGLOBIN 30.9 pg (27.0-33.4); MEAN CORPUSCULAR HGB CONC 34.6 g/dL (32.0-36.0); MEAN CORPUSCULAR VOLUME 89 fl (80-97); RED BLOOD COUNT 2.73 10^6/uL (3.72-5.28); WHITE BLOOD COUNT 4.3 10^3/uL (4.0-10.5)
[2018-11-25 06:44] LABS: BLOOD UREA NITROGEN 15 mg/dL (7-20); CALCIUM 8.4 mg/dL (8.4-10.2); GLUCOSE 126 mg/dL (75-110); POTASSIUM 4.6 mmol/L (3.6-5.0)
--- NOTE | 2018-11-25 06:55 | PDOC PROGRESS REPORT ---
Subjective Progress Note for:: 11/24/18 Subjective:: Complaining of significant pain across the costal margins. It hurts to sit up. She has difficulty breathing because of the pain. Reason For Visit: UTI SEPSIS IMMUNOCOMP Physical Exam Vital Signs: Temp Pulse Resp BP Pulse Ox 99.4 F 71 14 117/68 90 L 11/24/18 03:39 11/24/18 08:22 11/24/18 08:22 11/24/18 03:39 11/24/18 08:22 Intake & Output 11/23/18 11/24/18 11/25/18 06:59 06:59 06:59 Intake Total 1100 833 Balance 1100 833 Weight 99.5 kg General appearance: PRESENT: cooperative, mild distress, obese, well-developed Head exam: PRESENT: atraumatic, normocephalic Eye exam: PRESENT: conjunctiva pale. ABSENT: scleral icterus Ear exam: PRESENT: normal external ear exam Mouth exam: PRESENT: dry mucosa, tongue midline Respiratory exam: PRESENT: chest wall tenderness - Tenderness along the costal margin and tenderness at the sternum, clear to auscultation marcelo, symmetrical, un labored. ABSENT: prolonged expiratory phas, tachypnea, wheezes Cardiovascular exam: PRESENT: RRR, +S1, +S2. ABSENT: diastolic murmur, systolic murmur GI/Abdominal exam: PRESENT: normal bowel sounds, soft, tenderness - Slight tenderness in the suprapubic and epigastric areas, other - Pendulous abdomen. ABSENT: distended Rectal exam: PRESENT: deferred Extremities exam: PRESENT: pedal edema Neurological exam: PRESENT: alert, awake, oriented to person, oriented to place, oriented to time, oriented to situation, CN II-XII grossly intact Psychiatric exam: PRESENT: appropriate affect - Affect reflects her discomfort. ABSENT: agitated, anxious Focused psych exam: ABSENT: delusional, restlessness Skin exam: PRESENT: dry, warm. ABSENT: rash Results Laboratory Results: 11/24/18 07:39 11/24/18 05:21 11/23/18 11/23/18 11/23/18 19:35 19:35 19:35 WBC 4.2 RBC 3.13 L Hgb 9.5 L Hct 27.8 L MCV 89 MCH 30.5 MCHC 34.3 RDW 17.4 H Plt Count 92 L Seg Neutrophils % 88.4 H Lymphocytes % 5.7 L Monocytes % 4.5 Eosinophils % 1.1 Basophils % 0.3 Absolute Neutrophils 3.7 Absolute Lymphocytes 0.2 L Absolute Monocytes 0.2 Absolute Eosinophils 0.0 Absolute Basophils 0.0 Retic Count (auto) Absolute Retic VBG pH VBG pCO2 VBG HCO3 VBG Base Excess Sodium 134.8 L Potassium 4.6 Chloride 107 Carbon Dioxide 19 L Anion Gap 9 BUN 14 Creatinine 0.84 Est GFR ( Amer) > 60 Est GFR (Non-Af Amer) > 60 Glucose 182 H Lactic Acid 3.4 H Calcium 9.0 Iron TIBC % Saturation Ferritin Total Bilirubin 0.7 AST 24 ALT 15 Alkaline Phosphatase 110 Total Protein 6.0 L Albumin 3.1 L Vitamin B12 Folate Urine Color Urine Appearance Urine pH Ur Specific F[place] Urine Protein Urine Glucose (UA) Urine Ketones Urine Blood Urine Nitrite Ur Leukocyte Esterase Urine WBC (Auto) Urine RBC (Auto) 11/23/18 11/23/18 11/23/18 19:35 19:35 19:35 WBC RBC Hgb Hct MCV MCH MCHC RDW Plt Count Seg Neutrophils % Lymphocytes % Monocytes % Eosinophils % Basophils % Absolute Neutrophils Absolute Lymphocytes Absolute Monocytes Absolute Eosinophils Absolute Basophils Retic Count (auto) 2.12 Absolute Retic 0.066 VBG pH 7.38 VBG pCO2 33.9 L VBG HCO3 19.5 L VBG Base Excess -4.9 Sodium Potassium Chloride Carbon Dioxide Anion Gap BUN Creatinine Est GFR ( Amer) Est GFR (Non-Af Amer) Glucose Lactic Acid Calcium Iron 46.8 TIBC 319 % Saturation 15 Ferritin 22.90 Total Bilirubin AST ALT Alkaline Phosphatase Total Protein Albumin Vitamin B12 658.0 Folate > 20.00 Urine Color Urine Appearance Urine pH Ur Specific [place] Urine Protein Urine Glucose (UA) Urine Ketones Urine Blood Urine Nitrite Ur Leukocyte Esterase Urine WBC (Auto) Urine RBC (Auto) 11/23/18 11/24/18 11/24/18 20:45 05:21 05:21 WBC Cancelled RBC Cancelled Hgb Cancelled Hct Cancelled MCV Cancelled MCH Cancelled MCHC Cancelled RDW Cancelled Plt Count Cancelled Seg Neutrophils % Cancelled Lymphocytes % Cancelled Monocytes % Cancelled Eosinophils % Cancelled Basophils % Cancelled Absolute Neutrophils Cancelled Absolute Lymphocytes Cancelled Absolute Monocytes Cancelled Absolute Eosinophils Cancelled Absolute Basophils Cancelled Retic Count (auto) Absolute Retic VBG pH VBG pCO2 VBG HCO3 VBG Base Excess Sodium 135.6 L Potassium 4.4 Chloride 106 Carbon Dioxide 18 L Anion Gap 12 BUN 14 Creatinine 0.87 Est GFR ( Amer) > 60 Est GFR (Non-Af Amer) > 60 Glucose 96 Lactic Acid Calcium 8.3 L Iron TIBC % Saturation Ferritin Total Bilirubin AST ALT Alkaline Phosphatase Total Protein Albumin Vitamin B12 Folate Urine Color YELLOW Urine Appearance CLOUDY Urine pH 5.0 Ur Specific [place] 1.012 Urine Protein 30 H Urine Glucose (UA) 50 H Urine Ketones NEGATIVE Urine Blood MODERATE H Urine Nitrite POSITIVE H Ur Leukocyte Esterase LARGE H Urine WBC (Auto) >182 Urine RBC (Auto) 10 11/24/18 07:39 WBC 3.9 L RBC 2.73 L Hgb 8.4 L Hct 24.3 L MCV 89 MCH 30.8 MCHC 34.5 RDW 17.2 H Plt Count 70 L Seg Neutrophils % 86.4 H Lymphocytes % 8.8 L Monocytes % 3.4 Eosinophils % 1.2 Basophils % 0.2 Absolute Neutrophils 3.4 Absolute Lymphocytes 0.3 L Absolute Monocytes 0.1 Absolute Eosinophils 0.0 Absolute Basophils 0.0 Retic Count (auto) Absolute Retic VBG pH VBG pCO2 VBG HCO3 VBG Base Excess Sodium Potassium Chloride Carbon Dioxide Anion Gap BUN Creatinine Est GFR ( Amer) Est GFR (Non-Af Amer) Glucose Lactic Acid Calcium Iron TIBC % Saturation Ferritin Total Bilirubin AST ALT Alkaline Phosphatase Total Protein Albumin Vitamin B12 Folate Urine Color Urine Appearance Urine pH Ur Specific [place] Urine Protein Urine Glucose (UA) Urine Ketones Urine Blood Urine Nitrite Ur Leukocyte Esterase Urine WBC (Auto) Urine RBC (Auto) 11/23/18 19:35 Troponin I 0.012 Impressions: Chest X-Ray 11/23/18 19:38 IMPRESSION: No acute abnormality is identified. Abdomen/Pelvis CT 11/23/18 21:59 IMPRESSION: Cirrhotic appearance of the liver with gastroesophageal varices and splenic enlargement Incompletely distended urinary bladder with surrounding inflammation which may reflect cystitis Assessment and Plan - Diagnosis (1) Sepsis Qualifiers: Sepsis type: sepsis due to unspecified organism Qualified Code(s): A41.9 - Sepsis, unspecified organism Is this a current diagnosis for this admission?: Yes Plan: IV fluid challenge, follow-up lactic acid 11/24/2018-the etiology of the sepsis is likely her cystitis with a gram-negative bacillus. She qualifies for sepsis with thrombocytopenia (90) and hypoxemia (requires 2 L nasal cannula). Serum lactic acid was elevated and follow-up is pending. With IV fluids she avoided hypotension. (2) UTI (urinary tract infection) Qualifiers: Urinary tract infection type: acute cystitis Hematuria presence: with hematuria Qualified Code(s): N30.01 - Acute cystitis with hematuria Is this a current diagnosis for this admission?: Yes Plan: Blood and urine culture, follow-up recent microbiology from Dr. Lewis and Dr. Self at [facility], empiric Zosyn initiated. Follow-up CBC, blood and urine culture 11/24/2018-urine cultures growing gram-negative bacilli. Unfortunate the patient has been treated repeatedly with antibiotic therapy. The patient's daughter reports that over the course of the last year she has received 21 courses of antibiotic therapy. She is already seeing a urologist. She is currently on Zosyn. Once the culture results are available we will narrow the spectrum of antibiotic therapy. (3) Pancytopenia Is this a current diagnosis for this admission?: Yes Plan: 11/24/2018-the patient had thrombocytopenia on admission with a platelet count of 90 and is now down to 70. White blood cell count has fallen below normal at 3.9 and her hemoglobin is dropped to 8.4. There are multiple contributing factors including iron deficiency, her chronic autoimmune illness (rheumatoid arthritis), likely adverse reaction to methotrexate and possibly letrozole and on CT scan splenomegaly and cirrhosis were noted. Hematology has been consulted and will be seeing the patient. We will continue her iron, B12 and folic acid supplements. (4) Splenomegaly Is this a current diagnosis for this admission?: Yes Plan: 11/24/2018-as noted above splenomegaly was noted on CT scan. Hematology will be seeing the patient to better assess where the splenomegaly fits into the clinical picture. (5) Cirrhosis of liver Qualifiers: Hepatic cirrhosis type: unspecified hepatic cirrhosis Ascites presence: without ascites Qualified Code(s): K74.60 - Unspecified cirrhosis of liver Is this a current diagnosis for this admission?: Yes Plan: 11/24/2018-the patient is not noted to have an alcohol history by the documentation however I will investigate this further. She does have rheumatoid arthritis and so an autoimmune mediated cirrhosis is possible. The cirrhosis and splenomegaly could be contributing to her abdominal discomfort especially when sitting. Is also contributing to the sense of limited inspiration. Additional testing has been ordered. (6) Abdominal pain, acute, epigastric Is this a current diagnosis for this admission?: Yes Plan: 11/24/2018-the patient reports a sense of discomfort along the costal margins. She did exhibit some tenderness to palpation in that area as well as the sternum. There was some tenderness in the suprapubic and epigastric areas. The discomfort in the suprapubic area is likely related to her urinary tract infection. The discomfort in the epigastric area could be related to the cirrhosis and or splenomegaly. These are likely contributing to the discomfort that the patient reports especially when trying to sit up. (7) Hypothyroidism Qualifiers: Hypothyroidism type: unspecified Qualified Code(s): E03.9 - Hypothyroidism, unspecified Is this a current diagnosis for this admission?: Yes Plan: 11/24/2018-continue levothyroxine. - Time Time Spent with patient: 35 or more minutes Medications reviewed and adjusted accordingly: Yes Anticipated discharge: Home
[2018-11-25 06:58] LABS: CARBON DIOXIDE 23 mmol/L (22-30); CHLORIDE 107 mmol/L (98-107)
[2018-11-25 06:59] LABS: ANION GAP 4 (5-19)
[2018-11-25 07:03] LABS: PLATELET COUNT 70 10^3/uL (150-450)
--- NOTE | 2018-11-25 08:25 | PDOC CONSULTATION ---
Consultation Consult Date: 11/25/18 Attending physician:: YOLA HITCHCOCK Provider Consulted: WARREN LA Consult reason:: Pancytopenia History of Present Illness Admission Date/PCP: 11/23/18 23:14 LUCHO RICO MD Patient complains of: Weakness, pancytopenia History of Present Illness: NADEGE LAU is a 78 year old female who has had history of recurrent UTIs, weakness, upon presentation patient had lower hemoglobin and platelets. Review of her labs going back as far as last year, she had mild thrombocytopenia with platelet count of 129. Upon presentation patient did have CT of the abdomen pelvis which indicated nodular appearance of the liver, splenomegaly, concern of varices, consistent with a picture of cirrhosis. To my knowledge she is never had that diagnosis. She denies any heavy EtOH use. She does again have an E. c sunil comp located urinary tract infection, she presented with acute cystitis. Her hemoglobin is been in the 8 range and ferritin is low, white count is in the 3 range, platelets are 70s. Past Medical History Cardiac Medical History: Reports: Hypertension Denies: Myocardial Infarction Pulmonary Medical History: Reports: Asthma, Sleep Apnea Neurological Medical History: Denies: Seizures Endocrine Medical History: Reports: Diabetes Mellitus Type 2, Obesity GI Medical History: Reports: Hiatal Hernia Denies: Hepatitis Musculoskeltal Medical History: Reports: Arthritis Hematology: Denies: Anemia, Sickle Cell Disease Past Surgical History Past Surgical History: Reports: Cardiac Catheterization, Cholecystectomy, Orthopedic Surgery - b/l knee, Tonsillectomy Denies: Amputation, Mastectomy, Pacemaker Social History Lives with: Family Smoking Status: Never Smoker Frequency of Alcohol Use: None Hx Recreational Drug Use: No Drugs: None - Advance Directive Resuscitation Status: Full Code Family History Family History: Reviewed & Not Pertinent Parental Family History Reviewed: Yes Children Family History Reviewed: Yes Sibling(s) Family History Reviewed.: Yes Medication/Allergy Home Medications: Folic Acid 0.8 mg PO DAILY 06/10/17 Gabapentin 900 mg PO QHS 06/10/17 Iron 65 mg PO DAILY 06/10/17 Letrozole 2.5 mg PO DAILY 06/10/17 Losartan Potassium 100 mg PO DAILY 06/10/17 Metoprolol Succinate 50 mg PO DAILY 06/10/17 Nortriptyline HCl 10 mg PO QHS 06/10/17 Primidone [Mysoline 50 Mg Tablet] 150 mg PO DAILY 06/10/17 Sertraline HCl 150 mg PO DAILY 06/10/17 Simvastatin 10 mg PO DAILY 06/10/17 Ascorbic Acid [Vitamin C 500 mg Tablet] 500 mg PO DAILY 11/24/18 Aspirin [Ecotrin 81 mg EC Tablet] 81 mg PO DAILY 11/24/18 Celecoxib [Celebrex 200 mg Capsule] 200 mg PO DAILY 11/24/18 Cholecalciferol (Vitamin D3) [Vitamin D3 2000 unit Tablet] 2,000 unit PO DAILY 11/24/18 Cyanocobalamin (Vitamin B-12) [B-12] 2,500 mcg SL DAILY 11/24/18 Doxycycline Monohydrate 100 mg PO BID 11/24/18 Levothyroxine Sodium [Synthroid 0.025 mg Tablet] 25 mcg PO DAILY 11/24/18 Metformin HCl [Metformin HCl ER] 500 mg PO DAILY 11/24/18 Methotrexate Sodium [Rheumatrex 2.5 mg Tablet] 10 mg PO FR@1000 11/24/18 Omeprazole 40 mg PO DAILY 11/24/18 Oxybutynin Chloride [Ditropan 5 Mg Tablet] 5 mg PO BID 11/24/18 Allergies/Adverse Reactions: TIESHA Inhibitors Allergy (Verified 06/10/17 10:06) Review of Systems Constitutional: ABSENT: chills, fever(s), headache(s), weight gain, weight loss Eyes: ABSENT: visual disturbances Ears: ABSENT: hearing changes Cardiovascular: ABSENT: chest pain, dyspnea on exertion, edema, orthropnea, palpitations Respiratory: ABSENT: cough, hemoptysis Gastrointestinal: ABSENT: abdominal pain, constipation, diarrhea, hematemesis, hematochezia, nausea, vomiting Genitourinary: ABSENT: dysuria, hematuria Musculoskeletal: ABSENT: joint swelling Integumentary: ABSENT: rash, wounds Neurological: ABSENT: abnormal gait, abnormal speech, confusion, dizziness, focal weakness, syncope Psychiatric: ABSENT: anxiety, depression, homidical ideation, suicidal ideation Endocrine: ABSENT: cold intolerance, heat intolerance, polydipsia, polyuria Hematologic/Lymphatic: ABSENT: easy bleeding, easy bruising Physical Exam Vital Signs: Temp Pulse Resp BP Pulse Ox 97.7 F 83 27 H 134/73 H 94 11/24/18 23:25 11/25/18 07:00 11/25/18 02:48 11/24/18 23:25 11/25/18 02:48 Intake & Output 11/24/18 11/25/18 11/26/18 06:59 06:59 06:59 Intake Total 1100 4763 Balance 1100 4763 Weight 99.5 kg 102.2 kg General appearance: PRESENT: no acute distress, well-developed, well-nourished Head exam: PRESENT: atraumatic, normocephalic Eye exam: PRESENT: conjunctiva pink, EOMI, PERRLA. ABSENT: scleral icterus Ear exam: PRESENT: normal external ear exam Mouth exam: PRESENT: moist, tongue midline Neck exam: ABSENT: carotid bruit, JVD, lymphadenopathy, thyromegaly Respiratory exam: PRESENT: clear to auscultation marcelo. ABSENT: rales, rhonchi, wheezes Cardiovascular exam: PRESENT: RRR. ABSENT: diastolic murmur, rubs, systolic murmur Pulses: PRESENT: normal dorsalis pedis pul Vascular exam: PRESENT: normal capillary refill GI/Abdominal exam: PRESENT: normal bowel sounds, soft. ABSENT: distended, guarding, mass, organolmegaly, rebound, tenderness Rectal exam: PRESENT: deferred Extremities exam: PRESENT: full ROM. ABSENT: calf tenderness, clubbing, pedal edema Neurological exam: PRESENT: alert, awake, oriented to person, oriented to place, oriented to time, oriented to situation, CN II-XII grossly intact. ABSENT: motor sensory deficit Psychiatric exam: PRESENT: appropriate affect, normal mood. ABSENT: homicidal ideation, suicidal ideation Skin exam: PRESENT: dry, intact, warm. ABSENT: cyanosis, rash Results Laboratory Results: 11/25/18 06:10 11/25/18 06:10 11/24/18 11/24/18 11/24/18 07:39 14:54 14:54 WBC 3.9 L RBC 2.73 L Hgb 8.4 L Hct 24.3 L MCV 89 MCH 30.8 MCHC 34.5 RDW 17.2 H Plt Count 70 L Seg Neutrophils % 86.4 H Lymphocytes % 8.8 L Monocytes % 3.4 Eosinophils % 1.2 Basophils % 0.2 Absolute Neutrophils 3.4 Absolute Lymphocytes 0.3 L Absolute Monocytes 0.1 Absolute Eosinophils 0.0 Absolute Basophils 0.0 Sodium 130.3 L Potassium 4.4 Chloride 104 Carbon Dioxide 20 L Anion Gap 6 BUN 15 Creatinine 1.00 Est GFR ( Amer) > 60 Est GFR (Non-Af Amer) 54 L Glucose 155 H Lactic Acid 2.3 H Calcium 7.8 L Magnesium 1.4 L 11/24/18 11/25/18 11/25/18 22:00 06:10 06:10 WBC 4.3 RBC 2.73 L Hgb 8.4 L Hct 24.4 L MCV 89 MCH 30.9 MCHC 34.6 RDW 18.0 H Plt Count 70 L Seg Neutrophils % Lymphocytes % Monocytes % Eosinophils % Basophils % Absolute Neutrophils Absolute Lymphocytes Absolute Monocytes Absolute Eosinophils Absolute Basophils Sodium 134.0 L Potassium 4.6 Chloride 107 Carbon Dioxide 23 Anion Gap 4 L BUN 15 Creatinine 0.99 Est GFR ( Amer) > 60 Est GFR (Non-Af Amer) 55 L Glucose 126 H Lactic Acid 1.6 Calcium 8.4 Magnesium 1.6 11/25/18 06:10 WBC RBC Hgb Hct MCV MCH MCHC RDW Plt Count Seg Neutrophils % Lymphocytes % Monocytes % Eosinophils % Basophils % Absolute Neutrophils Absolute Lymphocytes Absolute Monocytes Absolute Eosinophils Absolute Basophils Sodium Potassium Chloride Carbon Dioxide Anion Gap BUN Creatinine Est GFR ( Amer) Est GFR (Non-Af Amer) Glucose Lactic Acid 1.1 Calcium Magnesium 11/23/18 20:45 Catheterized Urine Urine Culture - Final Escherichia Coli 11/23/18 19:35 Troponin I 0.012 Impressions: Chest X-Ray 11/23/18 19:38 IMPRESSION: No acute abnormality is identified. Abdomen/Pelvis CT 11/23/18 21:59 IMPRESSION: Cirrhotic appearance of the liver with gastroesophageal varices and splenic enlargement Incompletely distended urinary bladder with surrounding inflammation which may reflect cystitis Assessment & Plan - Diagnosis (1) Pancytopenia Is this a current diagnosis for this admission?: Yes Plan: Pancytopenia, probably related to the cirrhosis, multifactorial with iron deficiency anemia as well. May be related in part to mild DIC as the INR is slightly elevated, also probably myelosuppression from the infection itself. At this point only monitoring is needed. (2) Anemia Qualifiers: Anemia type: iron deficiency Iron deficiency anemia type: chronic blood loss Qualified Code(s): D50.0 - Iron deficiency anemia secondary to blood loss (chronic) Is this a current diagnosis for this admission?: Yes Plan: Probable chronic blood loss anemia may be from slow variceal leak, as patient is infected would not recommend giving IV iron right now. If needed, patient can be transfused but as hemoglobin is in the 8 range and she seems hemodynamically stable, we can hold on that. - Time Time Spent: Greater than 70 Minutes - Inpatient Certification Based on my medical assessment, after consideration of the patient's c omorbidities, presenting symptoms, or acuity I expect that the services needed warrant INPATIENT care.: Yes I certify that my determination is in accordance with my understanding of Medicare's requirements for reasonable and necessary INPATIENT services [42 CFR 412.3e].: Yes Medical Necessity: Risk of Complication if Not Cared For in Hospital
[2018-11-25 08:29] LABS: ALANINE AMINOTRANSFERASE 18 U/L (9-52); ALBUMIN 2.4 g/dL (3.5-5.0); ALKALINE PHOSPHATASE 81 U/L (38-126); ASPARTATE AMINO TRANSFERASE 22 U/L (14-36); BILIRUBIN,DIRECT 0.3 mg/dL (0.0-0.4); BILIRUBIN,TOTAL 0.7 mg/dL (0.2-1.3)
[2018-11-25] MEDS ORDERED: (PENDING PHARMACY ID) (Sertraline Hcl [Sertraline Hcl] 150 MG) PO SCH (10:00)
[2018-11-25] MEDS ORDERED: (PENDING PHARMACY ID) (Cyanocobalamin (Vitamin B-12) [B-12] 2,500 MCG) SL SCH (10:00)
[2018-11-25] MEDS ORDERED: (PENDING PHARMACY ID) (Cholecalciferol (Vitamin D3) [Vitamin D3 2000 Unit Tablet] 2,000 UN PO SCH (10:00)
[2018-11-25] MEDS: DOCUSATE SODIUM 100 MG CAPSULE PO SCH ×2 (10:10→18:09)
[2018-11-25] MEDS: CYANOCOBALAMIN (VITAMIN B-12) 1,000 MCG TABLET PO SCH (10:10)
[2018-11-25] MEDS: OXYBUTYNIN CHLORIDE 5 MG TABLET PO SCH ×2 (10:11→18:09)
[2018-11-25] MEDS: SERTRALINE HCL 50 MG TABLET PO SCH (10:11)
[2018-11-25] MEDS: CHOLECALCIFEROL (D3) 1,000 UNIT (25 MCG) TABLET PO SCH (10:11)
[2018-11-25] MEDS: ASCORBIC ACID 500 MG TABLET PO SCH (10:11)
[2018-11-25] MEDS: FOLIC ACID 1 MG TABLET PO SCH (10:11)
[2018-11-25] MEDS: FERROUS SULFATE 325 MG TABLET PO SCH ×2 (10:11→18:09)
[2018-11-25] MEDS: LEVOTHYROXINE SODIUM 0.025 MG TABLET PO SCH (10:12)
[2018-11-25] MEDS: ASPIRIN 81 MG TABLET, ENT COATED PO SCH (10:12)
[2018-11-25] MEDS: CELECOXIB 200 MG CAPSULE PO SCH (10:16)
[2018-11-25] MEDS: PRIMIDONE 50 MG TABLET PO SCH (10:16)
[2018-11-25] MEDS: OXYCODONE HCL IR 5 MG TABLET PO PRN ×2 (10:16→18:12)
[2018-11-25] MEDS: NORTRIPTYLINE HCL 10 MG CAPSULE PO SCH (21:20)
[2018-11-25] MEDS: GABAPENTIN 300 MG CAPSULE PO SCH (21:20)
[2018-11-26] MEDS: PIPERACILLIN SODIUM/TAZOBACTAM 4.5 GM in NORMAL SALINE 100 ML IV SCH (02:29)
[2018-11-26] MEDS: HEPARIN SOD (PORCINE) 5,000 UNIT/ML 1 ML SYRINGE SUBCUT SCH ×2 (05:00→13:47)
--- NOTE | 2018-11-26 05:43 | PDOC PROGRESS REPORT ---
Subjective Progress Note for:: 11/25/18 Subjective:: Sitting up and eating lunch. Feels much better today. Reason For Visit: UTI SEPSIS IMMUNOCOMP Physical Exam Vital Signs: Temp Pulse Resp BP Pulse Ox 98.7 F 68 22 H 133/45 H 99 11/25/18 19:25 11/25/18 19:25 11/25/18 19:25 11/25/18 19:25 11/25/18 19:25 Intake & Output 11/24/18 11/25/18 11/26/18 06:59 06:59 06:59 Intake Total 1100 4863 1054 Balance 1100 4863 1054 Weight 99.5 kg 102.2 kg General appearance: PRESENT: no acute distress, obese, well-developed Head exam: PRESENT: atraumatic, normocephalic Eye exam: PRESENT: conjunctiva pale, EOMI. ABSENT: scleral icterus Ear exam: PRESENT: normal external ear exam Mouth exam: PRESENT: moist, tongue midline Respiratory exam: PRESENT: rales - At right base, symmetrical, unlabored. ABSENT: accessory muscle use, rhonchi, tachypnea, wheezes Cardiovascular exam: PRESENT: RRR, +S1, +S2 GI/Abdominal exam: PRESENT: soft, other - Pendulous abdomen. ABSENT: guarding, tenderness Rectal exam: PRESENT: deferred Extremities exam: PRESENT: pedal edema, +1 edema. ABSENT: calf tenderness Neurological exam: PRESENT: alert, awake, oriented to person, oriented to place, oriented to time, oriented to situation, CN II-XII grossly intact. ABSENT: motor sensory deficit Psychiatric exam: PRESENT: flat affect. ABSENT: agitated, anxious Focused psych exam: ABSENT: delusional, restlessness Results Laboratory Results: 11/25/18 06:10 11/25/18 06:10 11/24/18 11/25/18 11/25/18 22:00 06:10 06:10 WBC 4.3 RBC 2.73 L Hgb 8.4 L Hct 24.4 L MCV 89 MCH 30.9 MCHC 34.6 RDW 18.0 H Plt Count 70 L Sodium 134.0 L Potassium 4.6 Chloride 107 Carbon Dioxide 23 Anion Gap 4 L BUN 15 Creatinine 0.99 Est GFR ( Amer) > 60 Est GFR (Non-Af Amer) 55 L Glucose 126 H Lactic Acid 1.6 Calcium 8.4 Magnesium 1.6 Total Bilirubin GGT AST ALT Alkaline Phosphatase Total Protein Albumin 11/25/18 11/25/18 06:10 06:10 WBC RBC Hgb Hct MCV MCH MCHC RDW Plt Count Sodium Potassium Chloride Carbon Dioxide Anion Gap BUN Creatinine Est GFR ( Amer) Est GFR (Non-Af Amer) Glucose Lactic Acid 1.1 Calcium Magnesium Total Bilirubin 0.7 GGT 31 AST 22 ALT 18 Alkaline Phosphatase 81 Total Protein 5.0 L Albumin 2.4 L 11/23/18 20:45 Catheterized Urine Urine Culture - Final Escherichia Coli 11/23/18 19:35 Troponin I 0.012 Impressions: Chest X-Ray 11/23/18 19:38 IMPRESSION: No acute abnormality is identified. Abdomen/Pelvis CT 11/23/18 21:59 IMPRESSION: Cirrhotic appearance of the liver with gastroesophageal varices and splenic enlargement Incompletely distended urinary bladder with surrounding inflammation which may reflect cystitis Assessment and Plan - Diagnosis (1) Sepsis Qualifiers: Sepsis type: sepsis due to unspecified organism Qualified Code(s): A41.9 - Sepsis, unspecified organism Is this a current diagnosis for this admission?: Yes Plan: IV fluid challenge, follow-up lactic acid 11/24/2018-the etiology of the sepsis is likely her cystitis with a gram-negative bacillus. She qualifies for sepsis with thrombocytopenia (90) and hypoxemia (requires 2 L nasal cannula). Serum lactic acid was elevated and follow-up is pending. With IV fluids she avoided hypotension. 11/25/2018-sepsis resolved with fluids and treatment of the cystitis. (2) UTI (urinary tract infection) Qualifiers: Urinary tract infection type: acute cystitis Hematuria presence: with hematuria Qualified Code(s): N30.01 - Acute cystitis with hematuria Is this a current diagnosis for this admission?: Yes Plan: Blood and urine culture, follow-up recent microbiology from Dr. Lewis and Dr. Self at [facility], empiric Zosyn initiated. Follow-up CBC, blood and urine culture 11/24/2018-urine cultures growing gram-negative bacilli. Unfortunate the patient has been treated repeatedly with antibiotic therapy. The patient's daughter reports that over the course of the last year she has received 21 courses of antibiotic therapy. She is already seeing a urologist. She is currently on Zosyn. Once the culture results are available we will narrow the spectrum of antibiotic therapy. 11/25/2018-the urine culture is positive for E. coli. It is extremely sensitive. Considering all the courses of antibiotics she has received over the last year this is surprising. This also begs the question of whether or not all of her e pisodes were truly infectious. Regardless, I will DC the Zosyn and start Keflex 500 mg every 12 hours for an additional 7 days. (3) Pancytopenia Is this a current diagnosis for this admission?: Yes Plan: 11/24/2018-the patient had thrombocytopenia on admission with a platelet count of 90 and is now down to 70. White blood cell count has fallen below normal at 3.9 and her hemoglobin is dropped to 8.4. There are multiple contributing factors including iron deficiency, her chronic autoimmune illness (rheumatoid arthritis), likely adverse reaction to methotrexate and possibly letrozole and on CT scan splenomegaly and cirrhosis were noted. Hematology has been consulted and will be seeing the patient. We will continue her iron, B12 and folic acid supplements. 11/25/2018-appreciate hematology's input. It is likely that the pancytopenia is a combination of her chronic autoimmune disease, adverse effects of medication, her acute illness and the cirrhosis. We will continue to monitor the counts. We will continue her folic acid, vitamin B12 and iron supplements. She will likely follow-up with hematology as an outpatient. (4) Splenomegaly Is this a current diagnosis for this admission?: Yes Plan: 11/24/2018-as noted above splenomegaly was noted on CT scan. Hematology will be seeing the patient to better assess where the splenomegaly fits into the clinical picture. 11/25/2018-we will continue to monitor. Likely multifactorial. Please also see hematology note. (5) Cirrhosis of liver Qualifiers: Hepatic cirrhosis type: unspecified hepatic cirrhosis Ascites presence: without ascites Qualified Code(s): K74.60 - Unspecified cirrhosis of liver Is this a current diagnosis for this admission?: Yes Plan: 11/24/2018-the patient is not noted to have an alcohol history by the documentation however I will investigate this further. She does have rheumatoid arthritis and so an autoimmune mediated cirrhosis is possible. The cirrhosis and splenomegaly could be contributing to her abdominal discomfort especially when sitting. Is also contributing to the sense of limited inspiration. Additional testing has been ordered. 11/25/2018-we had a long discussion today (patient and family members) and found out several new details. The patient does have a history of heavy alcohol use but stopped 20 years ago. She was told that she had hepatitis C but does not believe it was ever confirmed. She also has her underlying history of breast cancer but it does not appear that the CT scan of the liver represents metastatic disease. With this new information I have ordered hepatitis screening. I did order an autoimmune panel. Her studies may be abnormal due to her underlying rheumatoid arthritis but if they are normal we will likely be able to rule out an autoimmune hepatitis. Regardless, her transaminases are not acutely elevated. Because of the gastric varices I am adding Spironolactone to her regimen. Aggressive blood pressure control will be beneficial. (6) Abdominal pain, acute, epigastric Is this a current diagnosis for this admission?: Yes Plan: 11/24/2018-the patient reports a sense of discomfort along the costal margins. She did exhibit some tenderness to palpation in that area as well as the sternum . There was some tenderness in the suprapubic and epigastric areas. The discomfort in the suprapubic area is likely related to her urinary tract infection. The discomfort in the epigastric area could be related to the cirrhosis and or splenomegaly. These are likely contributing to the discomfort that the patient reports especially when trying to sit up. 11/25/2018-the patient is feeling much better. She is sitting up at the bedside eating. We will stop her IV fluids. (7) Hypothyroidism Qualifiers: Hypothyroidism type: unspecified Qualified Code(s): E03.9 - Hypothyroidism, unspecified Is this a current diagnosis for this admission?: Yes Plan: 11/24/2018-continue levothyroxine. 11/25/2018-continue current regimen. (8) Hypertension Qualifiers: Hypertension type: essential hypertension Qualified Code(s): I10 - Essential (primary) hypertension Is this a current diagnosis for this admission?: Yes Plan: 11/25/2018-because of her initial low blood pressures her metoprolol has been on hold. With the cirrhosis and considering her heart rate I will resume her metoprolol succinate but a decreased dose of 25 mg daily. I will also add S pironolactone 25 mg daily. She would benefit from aggressive blood pressure control. - Time Time Spent with patient: 25-34 minutes Medications reviewed and adjusted accordingly: Yes Anticipated discharge: Home
--- NOTE | 2018-11-26 08:39 | PDOC PROGRESS REPORT ---
Subjective Progress Note for:: 11/26/18 Subjective:: No acute events overnight Reason For Visit: UTI SEPSIS IMMUNOCOMP Physical Exam Vital Signs: Temp Pulse Resp BP Pulse Ox 98.4 F 75 20 147/54 H 94 11/25/18 23:36 11/26/18 08:29 11/26/18 08:29 11/25/18 23:36 11/26/18 08:29 Intake & Output 11/25/18 11/26/18 11/27/18 06:59 06:59 06:59 Intake Total 4863 1744 Balance 4863 1744 Weight 102.2 kg 118.3 kg General appearance: PRESENT: no acute distress, well-developed, well-nourished Head exam: PRESENT: atraumatic, normocephalic Eye exam: PRESENT: conjunctiva pink, EOMI, PERRLA. ABSENT: scleral icterus Ear exam: PRESENT: normal external ear exam Mouth exam: PRESENT: moist, tongue midline Neck exam: ABSENT: carotid bruit, JVD, lymphadenopathy, thyromegaly Respiratory exam: PRESENT: clear to auscultation marcelo. ABSENT: rales, rhonchi, wheezes Cardiovascular exam: PRESENT: RRR. ABSENT: diastolic murmur, rubs, systolic murmur Pulses: PRESENT: normal dorsalis pedis pul Vascular exam: PRESENT: normal capillary refill GI/Abdominal exam: PRESENT: normal bowel sounds, soft. ABSENT: distended, guarding, mass, organolmegaly, rebound, tenderness Rectal exam: PRESENT: deferred Extremities exam: PRESENT: full ROM. ABSENT: calf tenderness, clubbing, pedal edema Neurological exam: PRESENT: alert, awake, oriented to person, oriented to place, oriented to time, oriented to situation, CN II-XII grossly intact. ABSENT: motor sensory deficit Psychiatric exam: PRESENT: appropriate affect, normal mood. ABSENT: homicidal ideation, suicidal ideation Skin exam: PRESENT: dry, intact, warm. ABSENT: cyanosis, rash Results Laboratory Results: 11/25/18 06:10 11/25/18 06:10 11/23/18 20:45 Catheterized Urine Urine Culture - Final Escherichia Coli 11/23/18 19:35 Troponin I 0.012 Impressions: Chest X-Ray 11/23/18 19:38 IMPRESSION: No acute abnormality is identified. Abdomen/Pelvis CT 11/23/18 21:59 IMPRESSION: Cirrhotic appearance of the liver with gastroesophageal varices and splenic enlargement Incompletely distended urinary bladder with surrounding inflammation which may reflect cystitis Assessment & Plan - Diagnosis (1) Pancytopenia Is this a current diagnosis for this admission?: Yes Plan: Multifactorial, probably in large part due to cirrhosis. Follow-up in our office in about 2 weeks ordered today. (2) Anemia Qualifiers: Anemia type: iron deficiency Iron deficiency anemia type: chronic blood loss Qualified Code(s): D50.0 - Iron deficiency anemia secondary to blood loss (chronic) Is this a current diagnosis for this admission?: Yes Plan: Transfuse if needed, otherwise hold on IV iron until infection fully clears. - Time Time Spent with patient: 15-24 minutes Disposition: We will follow peripherally, follow-up in our office
[2018-11-26] MEDS: SERTRALINE HCL 50 MG TABLET PO SCH (09:04)
[2018-11-26] MEDS: OXYBUTYNIN CHLORIDE 5 MG TABLET PO SCH ×2 (09:04→17:32)
[2018-11-26] MEDS: FERROUS SULFATE 325 MG TABLET PO SCH ×2 (09:04→17:32)
[2018-11-26] MEDS: PRIMIDONE 50 MG TABLET PO SCH (09:04)
[2018-11-26] MEDS: ASCORBIC ACID 500 MG TABLET PO SCH (09:04)
[2018-11-26] MEDS: FOLIC ACID 1 MG TABLET PO SCH (09:04)
[2018-11-26] MEDS: ASPIRIN 81 MG TABLET, ENT COATED PO SCH (09:04)
[2018-11-26] MEDS: CHOLECALCIFEROL (D3) 1,000 UNIT (25 MCG) TABLET PO SCH (09:05)
[2018-11-26] MEDS: CELECOXIB 200 MG CAPSULE PO SCH (09:05)
[2018-11-26] MEDS: CYANOCOBALAMIN (VITAMIN B-12) 1,000 MCG TABLET PO SCH (09:05)
[2018-11-26] MEDS: DOCUSATE SODIUM 100 MG CAPSULE PO SCH ×2 (09:05→17:32)
[2018-11-26] MEDS ORDERED: CEPHALEXIN 500 MG CAPSULE PO SCH (10:00)
[2018-11-26] MEDS ORDERED: METOPROLOL SUCCINATE 25 MG TAB.SR.24H PO SCH (10:00)
[2018-11-26] MEDS ORDERED: SPIRONOLACTONE 25 MG TABLET PO SCH (10:00)
[2018-11-26] MEDS: LEVOTHYROXINE SODIUM 0.025 MG TABLET PO SCH (12:03)
[2018-11-26 14:18] LABS: ANTINUCLEAR ANTIBODIES Negative (Negative)
[2018-11-26] MEDS: OXYCODONE HCL IR 5 MG TABLET PO PRN (14:32)
[2018-11-26 18:15] VITALS: BP 133/53
--- NOTE | 2018-11-27 06:19 | PDOC DISCHARGE SUMMARY ---
General - Admit/Disc Date/PCP Admission Date/Primary Care Provider: 11/23/18 23:14 LUCHO RICO MD Discharge Date: 11/26/18 - Discharge Diagnosis (1) Sepsis Is this a current diagnosis for this admission?: Yes Summary: During hospitalization the patient exhibited a pulse ox less than 96% on 2 L nasal cannula as well as thrombocytopenia. This meets criteria for sepsis. Patient was placed on IV antibiotics and given fluids and sepsis did resolve. (2) UTI (urinary tract infection) Is this a current diagnosis for this admission?: Yes Summary: Patient is a complex urinary history. Over the last 2 years she has had repeated urinary infections. She has been on many course of antibiotic therapy. During this admission she did grow E. coli from the urine but surprisingly was pansensitive considering all the antibiotic she has been on. Because of the antibiotic profile I placed her on cephalexin once the sensitivities were available. She will complete a full 10-day course of antibiotic therapy. We did discuss possibilities for these recurrent urinary infections. She is seeing a urologist. Evidently she has a prolapsed bladder. She also reports that her colon is laying on her bladder. I explained what a colovesicular fistula was. I did suggest that the patient asked the urologist if this was considered. The patient's daughter is a nurse case packer and sealer and the patient's granddaughter is a nurse whom they do have significant medical knowledge and I feel that the daughter will pursue this with the urologist. (3) Pancytopenia Is this a current diagnosis for this admission?: Yes Summary: The patient did develop pancytopenia. She was seen by hematology. The patient reports that she has had trouble with her blood counts in the past. They thought it was due to the medications for her rheumatoid arthritis. Hematology will follow her as an outpatient. Her white blood cell count did improve slightly by the time of discharge. Her hemoglobin and platelet count were still below the normal range. She is seeing hematology in approximately 2 weeks. (4) Splenomegaly Is this a current diagnosis for this admission?: Yes Summary: Splenomegaly was noted on CT scan. This could be related to multiple comorbidities. Could be related to her pancytopenia or her cirrhosis. Follow- up per primary care provider (5) Cirrhosis of liver Is this a current diagnosis for this admission?: Yes Summary: CT scan reported cirrhosis of liver. There is no gross ascites. The patient was a heavy alcohol user but stopped 20 years ago. She does have rheumatoid arthritis and so an autoimmune hepatitis was considered but her DENIS was negative. During the course of her hospitalization the patient reported that she thought she had hepatitis C. On the day of discharge her daughter confirmed that she has tested positive for hepatitis C. I explained that this is far and away the most likely cause of her cirrhosis. I suggested that she establish with gastroenterology as there are now treatments for hepatitis C. Her transaminases were stable during her hospitalization. (6) Abdominal pain, acute, epigastric Is this a current diagnosis for this admission?: Yes Summary: Early in the course of her hospitalization the patient complained of abdominal pain the epigastric area. There was some tenderness with palpation of the lower ribs and sternum. There is tenderness in the suprapubic area but this is likely from the cystitis. The patient was given 5 mg of immediate release oxycodone with excellent results. We discussed the possibility of the liver and spleen contributing to the pain. The patient has chronic pain issues, likely related to her rheumatoid arthritis, and she does have an appointment with the pain management clinic on December 02. (7) Hypothyroidism Is this a current diagnosis for this admission?: Yes Summary: We continued her levothyroxine dose during this admission (8) Hypertension Is this a current diagnosis for this admission?: Yes Summary: The patient has a long history of hypertension. With the realization of cirrhosis I did add spironolactone to her regimen. This should help her blood pressures as she requires very aggressive blood pressure control since the cirrhosis was causing gastric varices noted on the CT scan. (9) Hepatitis C Is this a current diagnosis for this admission?: Yes Summary: As noted above, the patient does have history of hepatitis C. I did order he patitis screening panel prior to the confirmation of the diagnosis by her daughter. Those results are still pending at the time of discharge. (10) Morbid obesity with BMI of 45.0-49.9, adult Is this a current diagnosis for this admission?: Yes Summary: This certainly contributes to her pain as the excess body weight puts pressure on her joints and this is particularly relevant to her rheumatoid arthritis but also contributes to the hypertension and obstructive sleep apnea. As her exercise capacity is limited she should begin an exercise program slowly and aggressive dietary measures should be considered. (11) Obstructive sleep apnea Is this a current diagnosis for this admission?: Yes Summary: Continue with CPAP use at home. The patient would likely benefit from weight loss. - Additional Information Resuscitation Status: Full Code Prescriptions: Cephalexin Monohydrate [Keflex 500 mg Capsule] 500 mg PO Q12 7 Days #14 capsule Oxycodone HCl [Oxy-Ir 5 mg Tablet] 5 mg PO Q12HP PRN 5 Days #10 tablet PRN Reason: For Pain Scale 4-5 Spironolactone [Aldactone 25 mg Tablet] 25 mg PO DAILY 30 Days #30 tablet Home Medications: Folic Acid 0.8 mg PO DAILY 06/10/17 Gabapentin 900 mg PO QHS 06/10/17 Iron 65 mg PO DAILY 06/10/17 Letrozole 2.5 mg PO DAILY 06/10/17 Losartan Potassium 100 mg PO DAILY 06/10/17 Metoprolol Succinate 50 mg PO DAILY 06/10/17 Nortriptyline HCl 10 mg PO QHS 06/10/17 Primidone [Mysoline 50 mg Tablet] 150 mg PO DAILY 06/10/17 Sertraline HCl 150 mg PO DAILY 06/10/17 Simvastatin 10 mg PO DAILY 06/10/17 Ascorbic Acid [Vitamin C 500 mg Tablet] 500 mg PO DAILY 11/24/18 Aspirin [Ecotrin 81 mg EC Tablet] 81 mg PO DAILY 11/24/18 Celecoxib [Celebrex 200 mg Capsule] 200 mg PO DAILY 11/24/18 Cholecalciferol (Vitamin D3) [Vitamin D3 2000 unit Tablet] 2,000 unit PO DAILY 11/24/18 Cyanocobalamin (Vitamin B-12) [B-12] 2,500 mcg SL DAILY 11/24/18 Levothyroxine Sodium [Synthroid 0.025 mg Tablet] 25 mcg PO DAILY 11/24/18 Metformin HCl [Metformin HCl ER] 500 mg PO DAILY 11/24/18 Omeprazole 40 mg PO DAILY 11/24/18 Oxybutynin Chloride [Ditropan 5 mg Tablet] 5 mg PO BID 11/24/18 Cephalexin Monohydrate [Keflex 500 mg Capsule] 500 mg PO Q12 7 Days #14 capsule 11/26/18 Oxycodone HCl [Oxy-Ir 5 mg Tablet] 5 mg PO Q12HP PRN 5 Days #10 tablet 11/26/18 Spironolactone [Aldactone 25 mg Tablet] 25 mg PO DAILY 30 Days #30 tablet History of Present Illness Patient complains of: Fever and muscle aches History of Present Illness: NADEGE LAU is a 78 year old female with multiple comorbidities including a history of frequent urinary tract infections. She was found to have an elevated white blood cell count as well as pyuria and was referred to the hospital service for admission. In addition she did require supplemental oxygen due to increased work of breathing and was thrombocytopenic. This meets criteria for sepsis. Hospital Course Hospital Course: Medically speaking the hospital course was uneventful. We did discover the cirrhosis and splenomegaly. She did manifest pancytopenia but her daughter reports that this has happened in the past. She was seen by hematology. Cirrhosis and splenomegaly were discovered and a CT scan along with gastric varices. There is no marked ascites. Multiple discussions were had and it was noted that she has a history of hepatitis C. Her pain was well controlled with low-dose immediate release oxycodone. Her breathing improved as her pain improved. She will follow-up with primary care, rheumatology and establish with gastroenterology upon discharge. See additional details above. Physical Exam Vital Signs: Temp Pulse Resp BP Pulse Ox 98.4 F 72 17 124/59 L 94 11/26/18 16:00 11/26/18 16:00 11/26/18 16:00 11/26/18 16:00 11/26/18 16:00 Intake & Output 11/25/18 11/26/18 11/27/18 06:59 06:59 06:59 Intake Total 4863 1744 537 Balance 4863 1744 537 Weight 102.2 kg 118.3 kg General appearance: PRESENT: no acute distress, cooperative, morbidly obese, well-developed Head exam: PRESENT: atraumatic, normocephalic Eye exam: PRESENT: conjunctiva pale. ABSENT: scleral icterus Ear exam: PRESENT: normal external ear exam Mouth exam: PRESENT: moist, tongue midline Respiratory exam: PRESENT: clear to auscultation marcelo, symmetrical, unlabored. ABSENT: accessory muscle use, rales, rhonchi, tachypnea, wheezes Cardiovascular exam: PRESENT: RRR, +S1, +S2 GI/Abdominal exam: PRESENT: normal bowel sounds, soft, other - Protuberant abdomen. ABSENT: tenderness Rectal exam: PRESENT: deferred Gentrourinary exam: ABSENT: indwelling catheter Extremities exam: PRESENT: joint swelling, pedal edema. ABSENT: calf tenderness Neurological exam: PRESENT: alert, awake, oriented to person, oriented to place, oriented to time, oriented to situation, CN II-XII grossly intact Psychiatric exam: PRESENT: appropriate affect, normal mood. ABSENT: agitated, anxious Focused psych exam: ABSENT: delusional, restlessness Skin exam: PRESENT: dry, pallor, warm. ABSENT: rash Results Laboratory Results: 11/25/18 06:10 11/25/18 06:10 11/23/18 19:35 Troponin I 0.012 Impressions: Chest X-Ray 11/23/18 19:38 IMPRESSION: No acute abnormality is identified. Abdomen/Pelvis CT 11/23/18 21:59 IMPRESSION: Cirrhotic appearance of the liver with gastroesophageal varices and splenic enlargement Incompletely distended urinary bladder with surrounding inflammation which may reflect cystitis Qualifiers - * PATIENT BEING DISCHARGED WITH ANY OF THE FOLLOWING DIAGNOSIS: No Acute Heart Failure - Is this a Heart Failure Patient?: No Plan Discharge Plan: Follow-up with primary care provider, hematology, rheumatology and establish with gastroenterology The patient will be discharged with home health to continue therapy and monitor recovery. Time Spent: Greater than 30 Minutes
[2018-11-27 07:39] LABS: HEPATITIS A AB IGM Negative (Negative); HEPATITIS B CORE AB IGM Negative (Negative); HEPATITS B SURFACE ANTIGEN Negative (Negative)
[2018-11-27 08:03] LABS: HEPATITIS C VIRUS ANTIBODY <0.1 s/co ratio (0.0-0.9)
== END 2018-11-26 19:26 | disposition home health service (06) | DRG 872 ==
LOC: ER 19:29 → EH 23:14 → 5 11-24 01:40
PROVIDERS: ADMIT Internal Medicine; ATTEND Internal Medicine
DX: A41.9 Sepsis, unspecified organism (principal); N39.0 Urinary tract infection, site not specified; D61.818 Other pancytopenia; Z68.41 Body mass index [BMI] 40.0-44.9, adult; R31.9 Hematuria, unspecified; I10 Essential (primary) hypertension; D50.0 Iron deficiency anemia secondary to blood loss (chronic); E11.8 Type 2 diabetes mellitus with unspecified complications; E03.9 Hypothyroidism, unspecified; K21.9 Gastro-esophageal reflux disease without esophagitis; K74.60 Unspecified cirrhosis of liver; R16.1 Splenomegaly, not elsewhere classified; G47.33 Obstructive sleep apnea (adult) (pediatric); M06.9 Rheumatoid arthritis, unspecified; E66.01 Morbid (severe) obesity due to excess calories; B96.20 Unspecified Escherichia coli [E. coli] as the cause of diseases classified elsewhere; Z79.84 Long term (current) use of oral hypoglycemic drugs; Z79.82 Long term (current) use of aspirin; Z79.899 Other long term (current) drug therapy
CPT/HCPCS: 36415; 71045; 74176; 80048; 80053; 80074; 80076; 81001; 82607; 82728; 82746; 82803; 82977; 83540; 83550; 83605; 83735; 84484; 85025; 85027; 85045; 85384; 85610; 86038; 87040; 87086; 87088; 87186; 93005; 93010; 94660; 94799; J2543; J3490; J7030; J7050; J7120

== ENCOUNTER 2019-03-12 11:07 | Emergency (ER) | payer MEDICARE ==
--- NOTE | 2019-03-12 11:23 | ER Document Report ---
ED Medical Screen (RME) - General Chief Complaint: Urinary Problem Stated Complaint: RECTAL BLEEDING Time Seen by Provider: 03/12/19 11:18 Primary Care Provider: LUCHO RICO MD [Primary Care Provider] - Follow up as needed TRAVEL OUTSIDE OF THE [place] IN LAST 30 DAYS: No - HPI Notes: 03/12/19 11:22 Patient is a 78-year-old female with a history of chronic recurrent UTI, div erticulosis, hemorrhoids, DM, anemia, HTN who presents with daughter complaining of hematuria that started yesterday. Daughter states that they have also noticed some dark blood coming from the rectum. She was scheduled for a colonoscopy in 5 days with her GI doctor. She is not on any blood thinners. No fever or abdominal pain. I have treated and performed a rapid initial assessment of this patient. A comprehensive ED assessment and evaluation of the patient, analysis of test results and completion of medical decision making process will be conducted by additional ED providers. PHYSICAL EXAMINATION: GENERAL: Well-appearing, well-nourished and in no acute distress. - Related Data Allergies/Adverse Reactions: TIESHA Inhibitors Allergy (Verified 03/12/19 11:16) Past Medical History - Social History Chew tobacco use (# tins/day): No Frequency of alcohol use: None Drug Abuse: None - Past Medical History Cardiac Medical History: Reports: Hx Hypertension Denies: Hx Heart Attack Pulmonary Medical History: Reports: Hx Asthma, Hx Sleep Apnea Neurological Medical History: Reports: Hx Cerebrovascular Accident - SHORT TERM MEMORY LOSS. Denies: Hx Seizures Endocrine Medical History: Reports: Hx Diabetes Mellitus Type 2 Renal/ Medical History: Denies: Hx Peritoneal Dialysis GI Medical History: Reports: Hx Hiatal Hernia. Denies: Hx Hepatitis, Hx Ulcer Musculoskeltal Medical History: Reports Hx Arthritis Infectious Medical History: Denies: Hx Hepatitis Past Surgical History: Reports: Hx Cardiac Catheterization, Hx Cholecystectomy, Hx Orthopedic Surgery - b/l knee, Hx Tonsillectomy. Denies: Hx Mastectomy, Hx Open Heart Surgery, Hx Pacemaker - Immunizations Hx Diphtheria, Pertussis, Tetanus Vaccination: Yes Doctor's Discharge - Discharge Referrals: LUCHO RICO MD [Primary Care Provider] - Follow up as needed
[2019-03-12 12:23] LABS: ABSOLUTE EOSINOPHILS # (AUTO) 0.1 10^3/uL (0.0-0.6); ABSOLUTE LYMPHOCYTES (AUTO) 1.2 10^3/uL (0.5-4.7); ABSOLUTE MONOCYTES (AUTO) 0.4 10^3/uL (0.1-1.4); ABSOLUTE NEUT (AUTO) 2.6 10^3/uL (1.7-8.2); BASOPHILS % (AUTO) 0.5 % (0-2); EOSINOPHILS % (AUTO) 2.9 % (0-6); HEMATOCRIT 31.3 % (36.0-47.0); HEMOGLOBIN 10.8 g/dL (12.0-15.5); LYMPHOCYTES % (AUTO) 26.6 % (13-45); MEAN CORPUSCULAR HEMOGLOBIN 30.5 pg (27.0-33.4); MEAN CORPUSCULAR HGB CONC 34.4 g/dL (32.0-36.0); MEAN CORPUSCULAR VOLUME 89 fl (80-97); MONOCYTES % (AUTO) 10.3 % (3-13); PLATELET COUNT 124 10^3/uL (150-450); RED BLOOD COUNT 3.53 10^6/uL (3.72-5.28); RED CELL DISTRIBUTION WIDTH 15.7 % (11.5-14.0); SEGMENTED NEUTROPHILS % (AUTO) 59.7 % (42-78); TOTAL CELLS COUNTED % (AUTO) 100 %; WHITE BLOOD COUNT 4.4 10^3/uL (4.0-10.5)
[2019-03-12 12:33] LABS: PROTHROMBIN TIME 15.3 SEC (11.4-15.4)
[2019-03-12 12:34] LABS: PARTIAL THROMBOPLASTIN TIME 30.9 SEC (23.5-35.8)
[2019-03-12 12:42] LABS: ALBUMIN 3.7 g/dL (3.5-5.0); ALKALINE PHOSPHATASE 125 U/L (38-126); ANION GAP 9 (5-19); ASPARTATE AMINO TRANSFERASE 28 U/L (14-36); BILIRUBIN,DIRECT 0.1 mg/dL (0.0-0.4); BILIRUBIN,TOTAL 0.7 mg/dL (0.2-1.3); BLOOD UREA NITROGEN 18 mg/dL (7-20); CALCIUM 9.8 mg/dL (8.4-10.2); CARBON DIOXIDE 22 mmol/L (22-30); CHLORIDE 102 mmol/L (98-107); GLUCOSE 145 mg/dL (75-110); POTASSIUM 4.5 mmol/L (3.6-5.0); TOTAL PROTEIN 7.3 g/dL (6.3-8.2)
[2019-03-12 15:48] LABS: APPEARANCE,URINE CLOUDY; BILIRUBIN,URINE NEGATIVE (NEGATIVE); COLOR,URINE YELLOW; GLUCOSE, URINE NEGATIVE (NEGATIVE); KETONES,URINE NEGATIVE (NEGATIVE); PROTEIN,URINE 100 mg/dL (NEGATIVE); URINE SPECIFIC GRAVITY 1.011; UROBILINOGEN,URINE NEGATIVE mg/dL (<2.0)
--- NOTE | 2019-03-12 15:56 | ER Document Report ---
Entered by JAY CABEZAS SCRIBE 03/12/19 1529 Acting as scribe for:ALEISHA MONTOYA MD ED GI/ - General Chief Complaint: Rectal Bleeding Stated Complaint: RECTAL BLEEDING Time Seen by Provider: 03/12/19 11:18 Primary Care Provider: LUCHO RICO MD [Primary Care Provider] - Follow up as needed Mode of Arrival: Ambulatory Information source: Patient Notes: Patient is a 78-year-old female who presents to the emergency department today with complaints of "blood coming from somewhere". Daughter at bedside states that the patient wears a diaper and she has noticed large amounts of bleeding and she is unsure if it is coming from her "rectum or from her urethra". Patient has frequent urinary tract infections and she brings the ID report for her last 3 UTIs - Patient grew out Klebsiella, E. coli, and Proteus mirabilis during her last x3 UTIs. Patient is complaining of lower abdominal pain. TRAVEL OUTSIDE OF THE [place] IN LAST 30 DAYS: No - Related Data Allergies/Adverse Reactions: TIESHA Inhibitors Allergy (Verified 03/12/19 11:16) Past Medical History - General Information source: Patient, [facility] Records - Social History Smoking Status: Never Smoker Cigarette use (# per day): No Chew tobacco use (# tins/day): No Frequency of alcohol use: None Drug Abuse: None Lives with: Family Family History: Reviewed & Not Pertinent Patient has suicidal ideation: No Patient has homicidal ideation: No - Past Medical History Cardiac Medical History: Reports: Hx Hypertension Pulmonary Medical History: Reports: Hx Asthma, Hx Sleep Apnea Neurological Medical History: Reports: Hx Cerebrovascular Accident - SHORT TERM MEMORY LOSS Endocrine Medical History: Reports: Hx Diabetes Mellitus Type 2 GI Medical History: Reports: Hx Hiatal Hernia Musculoskeletal Medical History: Reports Hx Arthritis Past Surgical History: Reports: Hx Cardiac Catheterization, Hx Cholecystectomy, Hx Orthopedic Surgery - b/l knee, Hx Tonsillectomy - Immunizations Hx Diphtheria, Pertussis, Tetanus Vaccination: Yes Review of Systems - Review of Systems Constitutional: No symptoms reported EENT: No symptoms reported Cardiovascular: No symptoms reported Respiratory: No symptoms reported Gastrointestinal: See HPI Genitourinary: See HPI Female Genitourinary: No symptoms reported Musculoskeletal: No symptoms reported Skin: No symptoms reported Hematologic/Lymphatic: No symptoms reported Neurological/Psychological: No symptoms reported -: Yes All other systems reviewed and negative Physical Exam - Notes Notes: Physical Exam: General: Alert, appears well. HEENT: Normocephalic. Atraumatic. PERRL. Extraocular movements intact. Oropharynx clear. Neck: Supple. Non-tender. Respiratory: No respiratory distress. Clear and equal breath sounds bilaterally. Cardiovascular: Regular rate and rhythm. Abdominal: Obese tenderness with firm deep palpation of the lower abdomen pelvis.. Non-tender. No distension. Normal Bowel Sounds. Digital rectal exam: There is an anal fissure at 12 o'clock in the knee-chest position. There are dilated hemorrhoidal veins around the entire anus but there are no hemorrhoids. There is soft light brown stool in the rectal vault with no melena. Back: No gross abnormalities. Extremities: Moves all four extremities. Upper extremities: Normal inspection. Normal ROM. Lower extremities: Normal inspection. No edema. Normal ROM. Neurological: Normal cognition. AAOx4. Normal speech. Psychological: Demented Skin: Warm. Dry. Normal color. Course - Laboratory Result Diagrams: 03/12/19 11:54 03/12/19 11:54 Laboratory results interpreted by me: 03/12/19 03/12/19 03/12/19 11:54 11:54 15:10 RBC 3.53 L Hgb 10.8 L Hct 31.3 L RDW 15.7 H Plt Count 124 L Sodium 132.9 L Glucose 145 H Urine Protein 100 H Urine Blood LARGE H Leukocyte Esterase Rfl LARGE H Discharge - Discharge Clinical Impression: Urinary tract infection Qualifiers: Urinary tract infection type: site unspecified Hematuria presence: with hematuria Qualified Code(s): N39.0 - Urinary tract infection, site not specified; R31.9 - Hematuria, unspecified Condition: Stable Disposition: HOME, SELF-CARE Additional Instructions: Urinary Tract Infection Your evaluation indicates that you have a urinary tract infection. This is due to germs growing in the bladder. This is a common problem. This infection usually responds quickly to antibiotics. Your antibiotic should be taken exactly as prescribed. Drink plenty of fluids -- three to four quarts a day. Occasionally, a bladder anesthetic will be prescribed to help stop the feeling of urgency until the antibiotic has a chance to clear the infection. This may cause your urine to be dark orange. Certain urine infections require a culture. If the doctor obtained a culture, the results will be back in two days. You should call to see if a change in treatment is needed. A repeat urinalysis after you finish treatment is often recommended. The physician will let you know if further testing is required. Call the doctor if you develop fever, chills, flank pain, inability to urinate, or blood in the urine. The urine today shows a large amount of red blood cells, and too numerous to count white blood cells. This would suggest that the infection may be resistant to the cephalexin you are taking. At this time we will add Cipro to your antibiotics. Follow-up with your urologist on Friday to check on the urine cultures and see if you need any additional changes to your antibiotics. RETURN TO THE EMERGENCY ROOM IF ANY NEW OR WORSENING SYMPTOMS. Prescriptions: Ciprofloxacin HCl [Cipro 250 mg Tablet] 1 tab PO BID #10 tab Referrals: MIKE GILLIS [NO LOCAL MD] - 03/15/19 Scribe Attestation: 03/12/19 15:57 I personally performed the services described in the documentation, reviewed and edited the documentation which was dictated to the scribe in my presence, and it accurately records my words and actions. I personally performed the services described in the documentation, reviewed and edited the documentation which was dictated to the scribe in my presence, and it accurately records my words and actions.
[2019-03-12] MEDS ORDERED: CIPROFLOXACIN HCL 500 MG TABLET PO ONE (17:56)
[2019-03-12 18:44] VITALS: BP 133/60
== END 2019-03-12 18:46 | disposition home or self-care (01) ==
LOC: ER 11:07
DX: N39.0 Urinary tract infection, site not specified (principal); R31.9 Hematuria, unspecified; K60.2 Anal fissure, unspecified; I10 Essential (primary) hypertension; I69.911 Memory deficit following unspecified cerebrovascular disease; E11.9 Type 2 diabetes mellitus without complications; Z90.49 Acquired absence of other specified parts of digestive tract; Z87.440 Personal history of urinary (tract) infections
CPT/HCPCS: 99283; 36415; 87086; 85025; 85610; 85730; 80053; 81001; A9270

== ENCOUNTER 2019-05-31 16:21 | Emergency (ER) | payer MEDICARE, OTHER ==
--- NOTE | 2019-05-31 18:22 | ER Document Report ---
ED Medical Screen (RME) - General Chief Complaint: Shortness Of Breath Stated Complaint: TROUBLE BREATHING, POSSIBLE CHEST PAIN Time Seen by Provider: 05/31/19 18:16 Primary Care Provider: LUCHO RICO MD [Primary Care Provider] - Follow up as needed Notes: Patient is a 79-year-old male who presents to the emergency department with a chief complaint of shortness of breath. She states that she has been short of breath for the past 2 weeks. She states that whenever she takes a deep breath and she feels pain in her ribs. She also has complaints of a possible urinary tract infection. Exam: Rhonchi breath sounds noted to the left lower lobe. I have greeted and performed a rapid initial assessment of this patient. A comprehensive ED assessment and evaluation of the patient, analysis of test results and completion of medical decision making process will be conducted by an additional ED providers. TRAVEL OUTSIDE OF THE [place] IN LAST 30 DAYS: No - Related Data Allergies/Adverse Reactions: TIESHA Inhibitors Allergy (Verified 03/12/19 11:16) Past Medical History - Past Medical History Cardiac Medical History: Reports: Hx Hypertension Denies: Hx Heart Attack Pulmonary Medical History: Reports: Hx Asthma, Hx Sleep Apnea Neurological Medical History: Reports: Hx Cerebrovascular Accident - SHORT TERM MEMORY LOSS. Denies: Hx Seizures Endocrine Medical History: Reports: Hx Diabetes Mellitus Type 2 Renal/ Medical History: Denies: Hx Peritoneal Dialysis GI Medical History: Reports: Hx Hiatal Hernia. Denies: Hx Hepatitis, Hx Ulcer Musculoskeltal Medical History: Reports Hx Arthritis Infectious Medical History: Denies: Hx Hepatitis Past Surgical History: Reports: Hx Cardiac Catheterization, Hx Cholecystectomy, Hx Orthopedic Surgery - b/l knee, Hx Tonsillectomy. Denies: Hx Mastectomy, Hx Open Heart Surgery, Hx Pacemaker - Immunizations Hx Diphtheria, Pertussis, Tetanus Vaccination: Yes Physical Exam - Vital signs Vitals: Temp Pulse Resp BP Pulse Ox 98.8 F 59 L 16 148/57 H 95 05/31/19 17:24 05/31/19 17:24 05/31/19 17:24 05/31/19 17:24 05/31/19 17:24 Course - Vital Signs Vital signs: Temp Pulse Resp BP Pulse Ox 98.8 F 59 L 16 148/57 H 95 05/31/19 17:24 05/31/19 17:24 05/31/19 17:24 05/31/19 17:24 05/31/19 17:24 Doctor's Discharge - Discharge Referrals: LUCHO RICO MD [Primary Care Provider] - Follow up as needed
--- NOTE | 2019-05-31 18:49 | EKG REPORT ---
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
[2019-05-31 19:37] LABS: ABSOLUTE EOSINOPHILS # (AUTO) 0.1 10^3/uL (0.0-0.6); ABSOLUTE LYMPHOCYTES (AUTO) 1.1 10^3/uL (0.5-4.7); ABSOLUTE MONOCYTES (AUTO) 0.5 10^3/uL (0.1-1.4); ABSOLUTE NEUT (AUTO) 2.5 10^3/uL (1.7-8.2); BASOPHILS % (AUTO) 0.4 % (0-2); EOSINOPHILS % (AUTO) 3.2 % (0-6); HEMATOCRIT 26.6 % (36.0-47.0); HEMOGLOBIN 9.2 g/dL (12.0-15.5); LYMPHOCYTES % (AUTO) 25.8 % (13-45); MEAN CORPUSCULAR HEMOGLOBIN 30.4 pg (27.0-33.4); MEAN CORPUSCULAR HGB CONC 34.4 g/dL (32.0-36.0); MEAN CORPUSCULAR VOLUME 88 fl (80-97); MONOCYTES % (AUTO) 11.3 % (3-13); PLATELET COUNT 136 10^3/uL (150-450); RED BLOOD COUNT 3.01 10^6/uL (3.72-5.28); RED CELL DISTRIBUTION WIDTH 15.4 % (11.5-14.0); SEGMENTED NEUTROPHILS % (AUTO) 59.3 % (42-78); TOTAL CELLS COUNTED % (AUTO) 100 %; WHITE BLOOD COUNT 4.2 10^3/uL (4.0-10.5)
--- NOTE | 2019-05-31 19:48 | RADIOLOGY REPORT (SQ) ---
EXAM DESCRIPTION: CHEST SINGLE VIEW COMPLETED DATE/TIME: 05/31/2019 6:41 pm REASON FOR STUDY: shortness of breath COMPARISON: 11/23/2018 TECHNIQUE: Single frontal radiographic view of the chest acquired. NUMBER OF VIEWS: One view. LIMITATIONS: None. FINDINGS: LUNGS AND PLEURA: No pneumothorax. No consolidation. Increased interstitial thickening an d small right pleural effusion. MEDIASTINUM AND HILAR STRUCTURES: Stable. HEART AND VASCULAR STRUCTURES: Stable. BONES: No acute findings. HARDWARE: None in the chest. OTHER: No other significant finding. IMPRESSION: Increased interstitial thickening and small right pleural effusion. TECHNICAL DOCUMENTATION: JOB ID: [id number] [id number] 2010 [employer]- All Rights Reserved Reading location - IP/workstation name: [email or web address]
[2019-05-31 20:12] LABS: ALBUMIN 3.6 g/dL (3.5-5.0); ALKALINE PHOSPHATASE 121 U/L (38-126); ANION GAP 11 (5-19); ASPARTATE AMINO TRANSFERASE 27 U/L (14-36); BILIRUBIN,DIRECT 0.2 mg/dL (0.0-0.4); BILIRUBIN,TOTAL 0.8 mg/dL (0.2-1.3); BLOOD UREA NITROGEN 10 mg/dL (7-20); CALCIUM 9.2 mg/dL (8.4-10.2); CARBON DIOXIDE 25 mmol/L (22-30); CHLORIDE 103 mmol/L (98-107); GLUCOSE 114 mg/dL (75-110); TOTAL PROTEIN 7.2 g/dL (6.3-8.2)
[2019-05-31 21:08] LABS: APPEARANCE,URINE CLEAR; BILIRUBIN,URINE NEGATIVE (NEGATIVE); COLOR,URINE STRAW; GLUCOSE, URINE NEGATIVE (NEGATIVE); KETONES,URINE NEGATIVE (NEGATIVE); PROTEIN,URINE NEGATIVE (NEGATIVE); URINE SPECIFIC GRAVITY 1.004; UROBILINOGEN,URINE NEGATIVE mg/dL (<2.0)
--- NOTE | 2019-05-31 23:21 | ER Document Report ---
ED Respiratory Problem - General Chief Complaint: Shortness Of Breath Stated Complaint: TROUBLE BREATHING, POSSIBLE CHEST PAIN Time Seen by Provider: 05/31/19 18:16 Primary Care Provider: TASHA SANDHU MD [EMERITUS] - Follow up in 3-5 days Notes: Patient is a 79-year-old male who presents to the emergency department with a chief complaint of shortness of breath. She states that she has been short of breath for the past 2 weeks. She states that whenever she takes a deep breath and she feels pain in her ribs. She also has complaints of a possible urinary tract infection. Daughter gave her Lasix prior to arrival here in the ED. The patient used to be on lasix, but was taken off it by her primary care provider. TRAVEL OUTSIDE OF THE [place] IN LAST 30 DAYS: No - Related Data Allergies/Adverse Reactions: TIESHA Inhibitors Allergy (Verified 03/12/19 11:16) Past Medical History - Social History Smoking Status: Never Smoker Frequency of alcohol use: None Drug Abuse: None Family History: Reviewed & Not Pertinent Patient has suicidal ideation: No Patient has homicidal ideation: No - Past Medical History Cardiac Medical History: Reports: Hx Hypertension Denies: Hx Heart Attack Pulmonary Medical History: Reports: Hx Asthma, Hx Sleep Apnea Neurological Medical History: Reports: Hx Cerebrovascular Accident - SHORT TERM MEMORY LOSS. Denies: Hx Seizures Endocrine Medical History: Reports: Hx Diabetes Mellitus Type 2 Renal/ Medical History: Denies: Hx Peritoneal Dialysis GI Medical History: Reports: Hx Hiatal Hernia. Denies: Hx Hepatitis, Hx Ulcer Musculoskeletal Medical History: Reports Hx Arthritis Infectious Medical History: Denies: Hx Hepatitis Past Surgical History: Reports: Hx Cardiac Catheterization, Hx Cholecystectomy, Hx Orthopedic Surgery - b/l knee, Hx Tonsillectomy. Denies: Hx Mastectomy, Hx Open Heart Surgery, Hx Pacemaker - Immunizations Hx Diphtheria, Pertussis, Tetanus Vaccination: Yes Review of Systems - Review of Systems Notes: REVIEW OF SYSTEMS: CONSTITUTIONAL : Denies recent illness. Denies recent unintentional weight loss. Denies fever, chills, or sweats. EENT: Denies eye, ear, throat, or mouth pain, discharge, or symptoms. Denies nasal or sinus congestion. CARDIOVASCULAR: Denies chest pain. RESPIRATORY: See HPI. GASTROINTESTINAL: Denies nausea, vomiting, and diarrhea. Denies abdominal pain. Denies constipation. GENITOURINARY: See HPI. MUSCULOSKELETAL: Denies neck and back pain. Denies joint pain or swelling. SKIN: Denies rash, itchiness, or lesions HEMATOLOGIC : Denies easy bruising or bleeding. LYMPHATIC: Denies swollen, painful, enlarged glands. NEUROLOGICAL: Denies no numbness or tingling denies weakness. Denies headache. Denies altered mental status. Denies alteration in speech. PSYCHIATRIC: Denies stress, anxiety, alteration in sleep patterns, or depression. All other systems reviewed and negative. Physical Exam - Vital signs Vitals: Temp Pulse Resp BP Pulse Ox 98.8 F 59 L 16 148/57 H 95 05/31/19 17:24 05/31/19 17:24 05/31/19 17:24 05/31/19 17:24 05/31/19 17:24 - Notes Notes: PHYSICAL EXAMINATION: GENERAL: Appears well, healthy, well-nourished, no acute distress. HEAD: Normocephalic, atraumatic. EYES: PERRL, conjunctiva normal, all extraocular movements intact, sclera nonicteric ENT: Moist mucous membranes. NECK: Supple, no noticeable swelling, redness, rash. Normal range of motion. LUNGS: Diminished breath sounds in the bases. CARDIOVASCULAR: S1-S2, regular rate, regular rhythm. Radial pulses 2+, normal. ABDOMEN: Normoactive bowel sounds. Soft, nontender, no guarding, no rebound tenderness, and no masses palpated. EXTREMITIES: Normal strength and range of motion, no pitting or edema. No cyanosis. NEUROLOGICAL: Moves all extremities upon command. Strength 5/5 in all extremities. PSYCH: Normal mood, normal affect. SKIN: Warm, dry. No rash, lesions, ulcerations noted. Normal skin turgor. Course - Re-evaluation Re-evalutation: Hematology shows no leukocytosis. She is anemic with a hemoglobin of 9.2 and hematocrit of 26.6. Chemistries are unremarkable. Patient has a large amount of leukocytes in her urine. Patient states that she has had multiple urinary tract infections in the past. She was seen by Dr. Emerson and was placed on 2 different antibiotics at that time. At that time the bacteria was suseptible to cipro. She will be placed on cipro and keflex. Has a small pleural effusion noted on her chest x-ray. Patient states that she feels better due to her getting a dose of Lasix. I will start her on a few days of Lasix and she will follow-up with her primary care provider. Patient is in agreement with this plan. Follow-up precautions were given. Verbal discharge instructions were given to the patient. They verbalized understanding. They are stable for discharge. - Vital Signs Vital signs: Temp Pulse Resp BP Pulse Ox 97.2 F 69 20 144/72 H 94 05/31/19 23:40 05/31/19 23:40 05/31/19 23:40 05/31/19 23:40 05/31/19 23:40 - Laboratory Result Diagrams: 05/31/19 19:00 05/31/19 19:00 Laboratory results interpreted by me: 05/31/19 05/31/19 05/31/19 19:00 19:00 19:57 RBC 3.01 L Hgb 9.2 L Hct 26.6 L RDW 15.4 H Plt Count 136 L Est GFR (MDRD) Non-Af 59 L Glucose 114 H Leukocyte Esterase Rfl LARGE H Discharge - Discharge Clinical Impression: Pleural effusion UTI (urinary tract infection) Qualifiers: Urinary tract infection type: acute cystitis Hematuria presence: without hematuria Qualified Code(s): N30.00 - Acute cystitis without hematuria Condition: Stable Disposition: HOME, SELF-CARE Instructions: Urinary Tract Infection ([facility]) Additional Instructions: Your urine shows findings consistent with a urinary tract infection. Please take all the antibiotics as directed even if your symptoms have improved. Please follow-up with your primary care physician as needed. Return to emergency room if you develop fever >101F, persistent vomiting, become lethargic, have severe pain in your sides, or any other symptoms that are concerning to you. You also had a small pleural effusion noted on your chest x-ray. You are being started on Lasix once a day. Please have your primary care recheck your labs when you see them on Friday. Have them repeat your chest x-ray to see if it is better. If you have worsening symptoms, please return to the emergency department. Prescriptions: Ciprofloxacin HCl [Cipro 250 mg Tablet] 1 tab PO BID #10 tab Cephalexin [Keflex] 500 mg PO BID #14 capsule Furosemide [Lasix 20 mg Tablet] 20 mg PO QAM #4 tablet Referrals: TASHA SANDHU MD [EMERITUS] - Follow up in 3-5 days
[2019-05-31] MEDS ORDERED: CIPROFLOXACIN HCL 500 MG TABLET PO ONE (23:27)
[2019-05-31] MEDS ORDERED: CEPHALEXIN 500 MG CAPSULE PO ONE (23:27)
[2019-06-01 00:39] VITALS: BP 144/72
== END 2019-05-31 23:40 | disposition home or self-care (01) ==
LOC: ER 16:21
DX: J90 Pleural effusion, not elsewhere classified (principal); N30.00 Acute cystitis without hematuria; D64.9 Anemia, unspecified; J45.909 Unspecified asthma, uncomplicated; R06.02 Shortness of breath; R07.1 Chest pain on breathing; R07.81 Pleurodynia; I10 Essential (primary) hypertension; E11.9 Type 2 diabetes mellitus without complications; Z88.8 Allergy status to other drugs, medicaments and biological substances
CPT/HCPCS: 93005; 99285; 36415; 87086; 85025; 87088; 80053; 81001; 87186; 71045; 93010; A9270 ×2